=== PATIENT | female | born 1990 | race Caucasian/White ===

== ENCOUNTER 2016-06-29 10:42 | Emergency (ER) | payer MEDICAID ==
[~2016-06-29] VITALS: Ht 162.6 cm; Wt 89.4 kg
[~2016-06-29 10:42] MED LIST: ACET-789 PO; AMOX500C2 PO; AZIT250T5 PO; BUTA1CAP39 PO; CEFD300C3 PO; DEPO PROVERA; FLT05NA16 NSEACH; HYDR-1231 PO; HYDR-3812 PO; HYDR1TAB PO; IBP600T1 PO; IBP800T PO; IBUP-1773 PO; IBUP-30 PO; METR500T PO; NAPR-243 PO; NITR100C PO; PRD20T PO; PREN-115 PO; PREN1TAB71 PO; PRM5C60 TOP; PROP40TA5 PO; SULF1TAB38 PO; [UNRECOGNIZED DRUG - OTHER]
--- NOTE | 2016-06-29 11:32 | ED Cough/URI ---
General Chief Complaint: Cough/Cold/Flu Symptoms Stated Complaint: COUGH SORE THROAT EARACHE Nursing Triage Note: COUGH CONGESTION WITH EAR ACHE. X 3 DAYS History of Present Illness Time seen by provider: 11:15 Initial Comments Patient reports postnasal drainage, sore throat and dry cough for 2-3 days. She denies any fevers or current medications for the symptoms. She did take ibuprofen 600 mg at at bedtime last night Timing/Duration: intermittent Severity/Quality: mild, dry cough Prior Episodes/Possible Cause: occasional episodes Modifying Factors: Improves With Coughing, Improves With Rest Associated Symptoms: nasal congestion, nasal drainage, sore throat Allergies and Home Medications Allergies Coded Allergies: NKANo Known Allergies (Unverified Allergy, Mild, 11/05/08) Home Medications Azithromycin 250 Mg Tablet, 250 MG PO UD, #6 TAKE 2 TABLETS ON DAY ONE THEN TAKE 1 TABLET DAILY FOR FOUR MORE DAYS Prescribed by: CIRO SABILLON on 11/22/15 1037 Butalb/Acetaminophen/Caffeine 1 Each Capsule, 1 EACH PO DAILY PRN for HEADACHE, (Reported) Propranolol HCl 40 Mg Tablet, 40 MG PO DAILY, (Reported) Constitutional: no symptoms reported, see HPI EENTM: nose congestion, see HPI, throat pain Respiratory: see HPI, cough Cardiovascular: no symptoms reported, see HPI Gastrointestinal: no symptoms reported, see HPI Genitourinary: see HPI, No dysuria, frequency, No hematuria, other (she is breast-feeding, has resumed menses. She is on Depo-Provera present time.) Musculoskeletal: no symptoms reported, see HPI Skin: no symptoms reported, see HPI Psychiatric/Neurological: No Symptoms Reported, See HPI Hematologic/Lymphatic: No Symptoms Reported, See HPI Immunological/Allergic: no symptoms reported, see HPI All Other Systems Reviewed Negative Unless Noted: Yes Past Xndsyhe-Hdpsla-Kvymny Hx Patient Social History Alcohol Use: Denies Use Recreational Drug Use: No Former Smoker/When Quit: Jun 09, 2015 Recent Foreign Travel: No Contact w/Someone Who Travel: No Recent Infectious Disease Expo: No Recent Hopitalizations: No Immunizations Up To Date Tetanus Booster (TDap): Less than 5yrs Date of Influenza Vaccine: Dec 19, 2011 Surgeries HX Surgeries: Yes (d&C) Respiratory Hx Respiratory Disorders: No Cardiovascular Hx Cardiac Disorders: Yes Cardiac Disorders: Hypertension Neurological Hx Neurological Disorders: Yes Neurological Disorders: Headaches /Migraines Reproductive System Hx Reproductive Disorders: Yes (ovarian cyst) Female Reproductive Disorders: Ovarian Cyst Genitourinary Hx Genitourinary Disorders: No Gastrointestinal Hx Gastrointestinal Disorders: No Musculoskeletal Hx Musculoskeletal Disorders: No Endocrine Hx Endocrine Disorders: No HEENT HX ENT Disorders: No Cancer Hx Cancer: No Psychosocial Hx Psychiatric Problems: No Integumentary HX Skin/Integumentary Disorder: No Blood Transfusions Hx Blood Disorders: No Family Medical History Significant Family History: No Pertinent Family Hx Family Medial History: Diabetes mellitus GRANDMOTHER, MATERNAL FH: hepatitis 19 MOTHER Hypertension 19 MOTHER Physical Exam Vital Signs Vital Sign - Last 12Hours 06/29/16 10:50 Temp 98.6 Pulse 103 Resp 18 B/P (MAP) 147/97 O2 Delivery Room Air Capillary Refill : Less Than 3 Seconds General Appearance: WD/WN, no apparent distress Eyes: Bilateral Eye EOMI, Bilateral Eye Normal Inspection, Bilateral Eye PERRL HEENT: PERRL/EOMI, normal ENT inspection, TMs normal, pharynx normal, No pharyngeal erythema, No tonsillar exudate Neck: non-tender, full range of motion, supple, normal inspection, No lymphadenopathy (R), No lymphadenopathy (L), other (clear postnasal drainage.) Respiratory: chest non-tender, lungs clear, normal breath sounds, no respiratory distress Cardiovascular: normal peripheral pulses, regular rate, rhythm, no edema, no JVD, no murmur Gastrointestinal: normal bowel sounds, non tender, soft, no organomegaly, no pulsatile mass Extremities: normal range of motion, non-tender, normal inspection, no pedal edema, no calf tenderness, normal capillary refill Neurologic/Psychiatric: no motor/sensory deficits, alert, normal mood/affect, oriented x 3 Skin: normal color, warm/dry Lymphatic: no adenopathy Progress/Results/Core Measures Results/Orders Lab Results Laboratory Tests Test 06/29/16 11:26 Range/Units Urine Color YELLOW Urine Clarity CLEAR Urine pH 6 5-9 Urine Specific [place] 1.020 1.016-1.022 Urine Protein NEGATIVE NEGATIVE Urine Glucose (UA) NEGATIVE NEGATIVE Urine Ketones NEGATIVE NEGATIVE Urine Nitrite NEGATIVE NEGATIVE Urine Bilirubin NEGATIVE NEGATIVE Urine Urobilinogen NORMAL NORMAL MG/DL Urine Leukocyte Esterase 1+ H NEGATIVE Urine RBC (Auto) NEGATIVE NEGATIVE Urine RBC NONE /HPF Urine WBC 2-5 /HPF Urine Squamous Epithelial Cells 10-25 H /HPF Urine Crystals NONE /LPF Urine Bacteria FEW H /HPF Urine Casts NONE /LPF Urine Mucus MODERATE H /LPF Urine Culture Indicated NO My Orders Orders - LYNN NIXON Ua Culture If Indicated (06/29/16 11:26) Urine Bedside (06/29/16 11:26) Vital Signs/I&O Vital Sign - Last 12Hours 06/29/16 10:50 Temp 98.6 Pulse 103 Resp 18 B/P (MAP) 147/97 O2 Delivery Room Air Blood Pressure Mean: 114 Departure Impression Impression: Primary Impression: Allergic rhinitis Qualified Codes: J30.2 - Other seasonal allergic rhinitis Disposition: HOME, SELF-CARE Condition: Stable Departure-Patient Inst. Referrals: [facility] (PCP/Family) Primary Care Physician Patient Instructions: Seasonal Allergies (DC) Add. Discharge Instructions: All discharge instructions reviewed with patient and/or family. Voiced understanding. Increase fluid intake. Ibuprofen 600 mg every 8 hours for fever or pain. Use Over the counter allergy medicine and nasal spray as directed. Consider sinus irrigation. Return to emergency department for fever, difficulty breathing, sinus pain, or any new complaints. LYNN NIXON Jun 29, 2016 11:32
[2016-06-29 11:33] LABS: BILIRUBIN,URINE NEGATIVE (NEGATIVE); KETONES,URINE NEGATIVE (NEGATIVE); LEUKOCYTE ESTERASE ,URINE 1+ (NEGATIVE); NITRITE,URINE NEGATIVE (NEGATIVE); PH,URINE 6 (5-9); PROTEIN,URINE NEGATIVE (NEGATIVE); UROBILINOGEN,URINE NORMAL (NORMAL)
[2016-06-29 12:22] VITALS: BP 147/97
== END 2016-06-29 12:23 | disposition home or self-care (01) ==
LOC: EDUNIT# 10:42 → ER 10:46
DX: J30.2 Other seasonal allergic rhinitis (principal); J02.9 Acute pharyngitis, unspecified; R05 Cough; I10 Essential (primary) hypertension
CPT/HCPCS: 81000; 84703; 99282

== ENCOUNTER 2017-02-01 02:10 | Emergency (ER) | payer MEDICAID ==
[~2017-02-01] VITALS: Ht 162.6 cm; Wt 83.9 kg
--- NOTE | 2017-02-01 02:35 | ED Headache ---
General Chief Complaint: Head/Cervical Problems Stated Complaint: MIGRAINE Source: patient, other Exam Limitations: no limitations History of Present Illness Time seen by provider: 02:20 Initial Comments Patient presents to ER by private conveyance with chief complaint that since about 3:00 this afternoon she started experiencing a gripping constant for aggressively worsening global headache but feels like she is giving labor in her head and is constant, non-throbbing. She has used 1300 mg of aspirin with only marginal relief. She has not use Tylenol. She has some ear pain/on the right side as well as nasal congestion. No fevers, chills, vomiting, diarrhea, rash. She is mild nausea. She has not had a history of migraines however she does have a history of high blood pressure for which she used to be on propranolol but was taken off it 2 years ago with last . She is not on any other medications. She has not been able to sleep tonight secondary to her pain. She had some spots she saw but no numbness, paresthesias, weakness, falls , dizziness or lightheadedness. Allergies and Home Medications Allergies Coded Allergies: MEAGANANo Known Allergies (Unverified Allergy, Mild, 11/05/08) Home Medications Amoxicillin 500 Mg Capsule, 500 MG PO TID for 10 Days, #30 Ref 0 Prescribed by: KELLEY MISTRY on 02/01/17 0301 Azithromycin 250 Mg Tablet, 250 MG PO UD, #6 TAKE 2 TABLETS ON DAY ONE THEN TAKE 1 TABLET DAILY FOR FOUR MORE DAYS Prescribed by: CIRO SABILLON on 11/22/15 1037 Butalb/Acetaminophen/Caffeine 1 Each Capsule, 1 EACH PO DAILY PRN for HEADACHE, (Reported) Promethazine HCl 25 Mg Tablet, 25 MG PO Q6H PRN for NAUSEA/VOMITING, #14 Ref 0 Prescribed by: KELLEY MISTRY on 02/01/17 0302 Propranolol HCl 40 Mg Tablet, 40 MG PO DAILY, (Reported) Constitutional: No chills, No diaphoresis, No fever Eyes: Denies No Symptoms Reported, Denies Blindness, Denies Blurred Vision, Denies Drainage Ears, Nose, Mouth, Throat: ear pain, denies ear discharge Respiratory: No cough, No short of breath Cardiovascular: No chest pain, No palpitations Gastrointestinal: No abdominal pain, No constipation, No diarrhea, nausea, No vomiting Genitourinary: No discharge, No dysuria : No Musculoskeletal: No back pain, No joint pain Skin: No pruritus, No rash Psychiatric/Neurological: Headache, Denies Numbness, Denies Paresthesia Past Hjlvoyg-Qauthp-Wsjhql Hx Patient Social History Alcohol Use: Occasionally Uses Recreational Drug Use: No Smoking Status: Current Everyday Smoker Type Used: Cigarettes Recent Foreign Travel: No Contact w/Someone Who Travel: No Recent Hopitalizations: No Immunizations Up To Date Tetanus Booster (TDap): Less than 5yrs Date of Influenza Vaccine: Dec 19, 2011 Cardiovascular Cardiac Disorders: Hypertension Neurological Neurological Disorders: Headaches /Migraines Reproductive System Hx Reproductive Disorders: Yes (ovarian cyst) Female Reproductive Disorders: Ovarian Cyst Family Medical History Significant Family History: No Pertinent Family Hx Family Medial History: Diabetes mellitus GRANDMOTHER, MATERNAL FH: hepatitis 19 MOTHER Hypertension 19 MOTHER Physical Exam Vital Signs Vital Sign - Last 12Hours 02/01/17 02:24 Temp 97.5 Pulse 91 Resp 18 B/P (MAP) 141/125 Pulse Ox 99 O2 Delivery Room Air Capillary Refill : General Appearance: WD/WN, mild distress (tearful) HEENT: PERRL/EOMI, pharynx normal, TM abnormal (R) (retracted with effusion), TM abnormal (L) (retracted with effusion), No tonsillar exudate, other (frontal and maxillary sinuses are tender bilateral with mucopurulent discharge.) Neck: non-tender, supple (no anterior lymphadenopathy.), normal inspection Cardiovascular: normal peripheral pulses, regular rate, rhythm, no edema Respiratory: chest non-tender, lungs clear, normal breath sounds Extremities: non-tender, normal inspection, no pedal edema, normal capillary refill Psychiatric: alert, oriented x 3 Crainal Nerves: normal hearing, normal speech, PERRL, other (cranial nerves II through XII are intact.) Coordination/Gait: normal gait Motor/Sensory: no motor deficit, no sensory deficit Skin: normal color, warm/dry Lymphatic: no adenopathy Progress/Results/Core Measures Results/Orders My Orders Orders - KELLEY MISTRY Ketorolac Injection (Toradol Injection) (02/01/17 02:45) Promethazine Tablet (Phenergan Tablet) (02/01/17 02:45) Medications Given in ED Current Medications Medications Dose Ordered Sig/Jessica Route Start Time Stop Time Status Last Admin Dose Admin Ketorolac Tromethamine 15 mg ONCE ONCE IM 02/01/17 02:45 02/01/17 02:47 DC 02/01/17 02:52 15 MG Promethazine HCl 25 mg ONCE ONCE PO 02/01/17 02:45 02/01/17 02:47 DC 02/01/17 02:52 25 MG Vital Signs/I&O Vital Sign - Last 12Hours 02/01/17 02:24 Temp 97.5 Pulse 91 Resp 18 B/P (MAP) 141/125 Pulse Ox 99 O2 Delivery Room Air Departure Impression Impression: Primary Impression: Acute serous otitis media of both ears Qualified Codes: H65.03 - Acute serous otitis media, bilateral Additional Impressions: Maxillary sinusitis, acute Qualified Codes: J01.00 - Acute maxillary sinusitis, unspecified Headache Qualified Codes: R51 - Headache Disposition: 01 HOME, SELF-CARE Condition: Stable Departure-Patient Inst. Decision time for Depature: 03:26 Referrals: [facility] (PCP) Primary Care Physician ROXI CLEMONS (Family) Primary Care Physician Patient Instructions: Sinus Headache (DC) Add. Discharge Instructions: Drink plenty of fluids. Use Tylenol 1000 mg every 8 hours and ibuprofen 800 mg every 8 hours for your pain. Try and get some sleep. If you continue to have nausea you may take one tablet of Phenergan every 6 hours. Obtain Flonase, fluticasone and put 1 spray in each nostril daily for the next 2-4 weeks. You may use it routinely if you have chronic ear and sinus troubles. Obtain the amoxicillin and take one tablet by mouth 3 times a day to completion or at least 2-3 days after you no longer have symptoms. All discharge instructions reviewed with patient and/or family. Voiced understanding. Scripts Promethazine HCl (Promethazine Tablet) 25 Mg Tablet 25 MG PO Q6H Y for NAUSEA/VOMITING, #14 TAB 0 Refills Prov: KELLEY MSITRY 02/01/17 Amoxicillin (Amoxicillin) 500 Mg Capsule 500 MG PO TID for 10 Days, #30 CAP 0 Refills Prov: KELLEY MISTRY 02/01/17 Copy Copies To 1: TOMMY HAN TITUS J Feb 01, 2017 02:35
[2017-02-01] MEDS: KETOROLAC 30 MG/ML VIAL IM ONE (02:52)
[2017-02-01] MEDS: PROMETHAZINE 25 MG (PHENERGAN) TAB PO ONE (02:52)
[2017-02-01] MEDS ORDERED: AMOX500C2 PO (03:01)
[2017-02-01] MEDS ORDERED: PROM25TA14 PO (03:02)
[2017-02-01 03:45] VITALS: BP 143/100
== END 2017-02-01 03:47 | disposition home or self-care (01) ==
LOC: EDUNIT# 02:10 → ER 02:15
DX: H65.03 Acute serous otitis media, bilateral (principal); J01.00 Acute maxillary sinusitis, unspecified; R51 Headache; I10 Essential (primary) hypertension; F17.210 Nicotine dependence, cigarettes, uncomplicated; Z87.448 Personal history of other diseases of urinary system
CPT/HCPCS: 99284

== ENCOUNTER 2017-03-15 07:45 | Emergency (ER) | payer MEDICAID ==
[~2017-03-15] VITALS: Ht 162.6 cm; Wt 83.9 kg
[~2017-03-15 07:45] MED LIST changes: +ACHD5005 PO; +AZIT250T12 PO; -AZIT250T5 PO; -HYDR-3812 PO; +PROM25TA14 PO
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
--- NOTE | 2017-03-15 10:10 | Diagnostic Imaging Report ---
EXAM: Two views of the thoracic spine. INDICATION: Back pain. FINDINGS: The alignment of the thoracic spine is satisfactory. The vertebral body heights are preserved. Disc heights are also preserved. No significant degenerative changes are seen. The paraspinal soft tissues appear unremarkable. IMPRESSION: Unremarkable examination. Dictated by: Dictated on workstation # [id number]
--- NOTE | 2017-03-15 10:12 | Diagnostic Imaging Report ---
PA view of the chest Indication: Cough Findings: The lungs are clear. The heart size is normal. There is no effusion or pneumothorax The mediastinum and isael appear unremarkable. Impression: Unremarkable study. Dictated by: Dictated on workstation # [id number]
[2017-03-15] MEDS ORDERED: fLEXERIL (10:28)
[2017-03-15] MEDS ORDERED: TRAM50TA2 PO (10:28)
[2017-03-15] MEDS: fentaNYL INJECTION 100 MCG/2 ML AMP IVP PRN (10:41)
[2017-03-15 10:45] VITALS: BP 125/86
== END 2017-03-15 10:45 | disposition home or self-care (01) ==
LOC: EDUNIT# 07:45 → ER 07:46
DX: M54.6 Pain in thoracic spine (principal); J06.9 Acute upper respiratory infection, unspecified; I10 Essential (primary) hypertension; G43.909 Migraine, unspecified, not intractable, without status migrainosus; F17.210 Nicotine dependence, cigarettes, uncomplicated; Z87.448 Personal history of other diseases of urinary system; V48.6XXA Car passenger injured in noncollision transport accident in traffic accident, initial encounter
CPT/HCPCS: 71010; 72070; 99281

== ENCOUNTER 2018-04-26 06:19 | Emergency (ER) | payer MEDICAID ==
[~2018-04-26] VITALS: Ht 162.6 cm; Wt 78.0 kg
[~2018-04-26 06:19] MED LIST changes: +TRAM50TA2 PO; +fLEXERIL
--- OUTSIDE RECORDS SUMMARY | 2018-04-26 06:26 | XMS REPORT | Continuity of Care Document ---
Author Author [facility] Organization [facility] Address Unknown Phone Unavailable Allergies Active Description Code Type Severity Reaction Onset Reported/Identified Relationship to Patient Clinical Status Yes NKANo Known Allergies NKA Miscellaneous Allergy Mild N/A 11/05/2008 Medications There is no data. Problems Date Dx Coded Attending Type Code Diagnosis Diagnosed By 06/07/2010 Ot 462 10/12/2010 Ot 623.8 10/12/2010 Ot 626.8 02/01/2011 Ot 620.2 02/01/2011 Ot 625.9 03/26/2011 Ot 923.11 03/26/2011 Ot 959.3 03/26/2011 Ot E000.8 03/26/2011 Ot E849.0 03/26/2011 Ot E888.1 06/07/2011 Ot 924.20 06/07/2011 Ot 959.7 06/07/2011 Ot E000.8 06/07/2011 Ot E849.0 06/07/2011 Ot E917.9 07/20/2011 Ot 079.99 07/20/2011 Ot 465.9 07/20/2011 Ot 646.83 07/20/2011 Ot 647.63 07/20/2011 Ot 786.2 10/16/2011 Ot 599.0 10/16/2011 Ot 616.10 10/16/2011 Ot 646.63 10/16/2011 Ot 789.00 03/22/2012 Ot 648.91 03/22/2012 Ot V02.51 03/22/2012 Ot V06.1 03/22/2012 Ot V27.0 12/09/2012 FRANKY LOVE, CIRO Pfeiffer Ot 724.5 12/09/2012 FRANKY LOVE, CIRO Pfeiffer Ot 847.9 12/09/2012 FRANKY LOVE, CIRO Pfeiffer Ot E000.8 12/09/2012 FRANKY LOVE, CIRO Pfeiffer Ot E849.0 12/09/2012 FRANKY LOVE, CIRO Pfeiffer Ot E928.9 02/11/2013 MADINA LOVE, ZAY Cruz Ot 133.0 02/11/2013 MADINA LOVE, ZAY Cruz Ot 782.1 08/02/2013 FITO FERNANDEZ DO Ot 637.91 07/18/2014 GUILLERMO LOVE, LAKSHMI Heath Ot 289.3 07/18/2014 GUILLERMO LOVE, LAKSHMI A Ot 525.9 03/02/2015 CLARITA RUTHERFORD Ot F17.210 03/02/2015 CLARITA RUTHERFORD Ot O99.89 03/02/2015 CLARITA RUTHERFORD Ot R10.32 03/02/2015 CLARITA RUTHERFORD Ot Z3A.17 06/12/2015 CLARITA RUTHERFORD Ot J01.00 ACUTE MAXILLARY SINUSITIS, UNSPECIFIED 06/12/2015 CLARITA RUTHERFORD Ot O99.511 DISEASES OF THE RESP SYS COMP , 06/12/2015 CLARITA RUTHERFORD Ot Z3A.31 31 WEEKS GESTATION OF 06/14/2015 CLARITA RUTHERFORD Ot J01.00 06/14/2015 CLARITA RUTHERFORD Ot O99.511 06/14/2015 CLARITA RUTHERFORD Ot Z3A.31 08/13/2015 FITO FERNANDEZ DO Ot D62 ACUTE POSTHEMORRHAGIC ANEMIA 08/13/2015 FITO FERNANDEZ DO Ot O70.0 FIRST DEGREE PERINEAL LACERATION DURING 08/13/2015 FITO FERNANDEZ DO Ot O76 ABNLT IN HEART RATE AND RHYTHM COM 08/13/2015 FITO FERNANDEZ DO Ot O90.81 ANEMIA OF THE PUERPERIUM 08/13/2015 FITO FERNANDEZ DO Ot Z23 ENCOUNTER FOR IMMUNIZATION 08/13/2015 FITO FERNANDEZ DO Ot Z37.0 SINGLE LIVE 08/13/2015 FITO FERNANDEZ DO Ot Z3A.40 40 WEEKS GESTATION OF 11/22/2015 FRANKY LOVE, CIRO Pfeiffer Ot F17.210 NICOTINE DEPENDENCE, CIGARETTES, UNCOMPL 11/22/2015 FRANKY LOVE, CIRO Pfeiffer Ot J02.0 STREPTOCOCCAL PHARYNGITIS 11/22/2015 FRANKY LOVE, CIRO Pfeiffer Ot J02.9 ACUTE PHARYNGITIS, UNSPECIFIED 11/22/2015 FRANKY LOVE, CIRO Pfeiffer Ot R50.9 FEVER, UNSPECIFIED 11/22/2015 FRANKY LOVE, CIRO Pfeiffer Ot R51 HEADACHE 06/29/2016 TIFFANI, LYNN [employer] Ot I10 ESSENTIAL (PRIMARY) HYPERTENSION 06/29/2016 TIFFANI, LYNN [employer] Ot J02.9 ACUTE PHARYNGITIS, UNSPECIFIED 06/29/2016 TIFFANI, LYNN [employer] Ot J30.2 OTHER SEASONAL ALLERGIC RHINITIS 06/29/2016 TIFFANI, LYNN [employer] Ot R05 COUGH 07/01/2016 TIFFANI, LYNN [employer] Ot I10 ESSENTIAL (PRIMARY) HYPERTENSION 07/01/2016 TIFFANI, LYNN [employer] Ot J02.9 ACUTE PHARYNGITIS, UNSPECIFIED 07/01/2016 TIFFANI, LYNN [employer] Ot J30.2 OTHER SEASONAL ALLERGIC RHINITIS 07/01/2016 TIFFANI, LYNN [employer] Ot R05 COUGH 07/05/2016 TIFFANI, LYNN [employer] Ot I10 ESSENTIAL (PRIMARY) HYPERTENSION 07/05/2016 TIFFANI, LYNN [employer] Ot J02.9 ACUTE PHARYNGITIS, UNSPECIFIED 07/05/2016 TIFFANI, LYNN [employer] Ot J30.2 OTHER SEASONAL ALLERGIC RHINITIS 07/05/2016 TIFFANI, LYNN [employer] Ot R05 COUGH 02/01/2017 KELLEY MISTRY MD Ot F17.210 NICOTINE DEPENDENCE, CIGARETTES, UNCOMPL 02/01/2017 KELLEY MISTRY MD Ot H65.03 ACUTE SEROUS OTITIS MEDIA, BILATERAL 02/01/2017 KELLEY MISTRY MD Ot I10 ESSENTIAL (PRIMARY) HYPERTENSION 02/01/2017 KELLEY MISTRY MD Ot J01.00 ACUTE MAXILLARY SINUSITIS, UNSPECIFIED 02/01/2017 KELLEY MISTRY MD Ot R51 HEADACHE 02/01/2017 KELLEY MISTRY MD Ot Z87.448 PERSONAL HISTORY OF OTHER DISEASES OF UR 02/05/2017 KELLEY MISTRY MD Ot F17.210 NICOTINE DEPENDENCE, CIGARETTES, UNCOMPL 02/05/2017 KELLEY MISTRY MD Ot H65.03 ACUTE SEROUS OTITIS MEDIA, BILATERAL 02/05/2017 KELLEY MISTRY MD Ot I10 ESSENTIAL (PRIMARY) HYPERTENSION 02/05/2017 KELLEY MISTRY MD Ot J01.00 ACUTE MAXILLARY SINUSITIS, UNSPECIFIED 02/05/2017 KELLEY MISTRY MD Ot R51 HEADACHE 02/05/2017 KELLEY MISTRY MD Ot Z87.448 PERSONAL HISTORY OF OTHER DISEASES OF UR 03/15/2017 NEERU RODRÍGUEZ MD Ot F17.210 NICOTINE DEPENDENCE, CIGARETTES, UNCOMPL 03/15/2017 NEERU RODRÍGUEZ MD Ot G43.909 MIGRAINE, UNSP, NOT INTRACTABLE, WITHOUT 03/15/2017 NEERU RODRÍGUEZ MD Ot I10 ESSENTIAL (PRIMARY) HYPERTENSION 03/15/2017 NEERU RODRÍGUEZ MD Ot J06.9 ACUTE UPPER RESPIRATORY INFECTION, UNSPE 03/15/2017 NEERU RODRÍGUEZ MD Ot M54.6 PAIN IN THORACIC SPINE 03/15/2017 NEERU RODRÍGUEZ MD Ot M54.9 DORSALGIA, UNSPECIFIED 03/15/2017 NEERU RODRÍGUEZ MD Ot V48.6XXA [facility] 03/15/2017 NEERU RODRÍGUEZ MD Ot Z87.448 PERSONAL HISTORY OF OTHER DISEASES OF UR 03/22/2017 NEERU RODRÍGUEZ MD Ot F17.210 NICOTINE DEPENDENCE, CIGARETTES, UNCOMPL 03/22/2017 NEERU RODRÍGUEZ MD Ot G43.909 MIGRAINE, UNSP, NOT INTRACTABLE, WITHOUT 03/22/2017 NEERU RODRÍGUEZ MD Ot I10 ESSENTIAL (PRIMARY) HYPERTENSION 03/22/2017 NEERU RODRÍGUEZ MD Ot J06.9 ACUTE UPPER RESPIRATORY INFECTION, UNSPE 03/22/2017 NEERU RODRÍGUEZ MD Ot M54.6 PAIN IN THORACIC SPINE 03/22/2017 NEERU RODRÍGUEZ MD Ot M54.9 DORSALGIA, UNSPECIFIED 03/22/2017 NEERU RODRÍGUEZ MD Ot V48.6XXA [facility] 03/22/2017 NEERU RODRÍGUEZ MD Ot Z87.448 PERSONAL HISTORY OF OTHER DISEASES OF UR Procedures Code Description Performed By Performed On [id number] INTRODUCE OF OTH THERAP SUBST INTO FEM R 08/09/2015 [id number] REPAIR VULVA, EXTERNAL APPROACH 08/11/2015 [id number] DELIVERY OF PRODUCTS OF CONCEPTION, EXTE 08/11/2015 Results Test Result Range Complete blood count (CBC) with automated white blood cell (WBC) differential - 11/22/15 08:05 Blood leukocytes automated count (number/volume) 17.8 10*3/uL 4.3-11.0 Blood erythrocytes automated count (number/volume) 4.33 10*6/uL 4.35-5.85 Venous blood hemoglobin measurement (mass/volume) 13.8 g/dL 11.5-16.0 Blood hematocrit (volume fraction) 40 % 35-52 Automated erythrocyte mean corpuscular volume 91 [foz_us] 80-99 Automated erythrocyte mean corpuscular hemoglobin (mass per erythrocyte) 32 pg 25-34 Automated erythrocyte mean corpuscular hemoglobin concentration measurement ( mass/volume) 35 g/dL 32-36 Automated erythrocyte distribution width ratio 13.0 % 10.0-14.5 Automated blood platelet count (count/volume) 235 10*3/uL 130-400 Automated blood platelet mean volume measurement 11.2 [foz_us] 7.4-10.4 Automated blood neutrophils/100 leukocytes 83 % 42-75 Automated blood lymphocytes/100 leukocytes 6 % 12-44 Blood monocytes/100 leukocytes 10 % 0-12 Automated blood eosinophils/100 leukocytes 0 % 0-10 Automated blood basophils/100 leukocytes 0 % 0-10 Blood neutrophils automated count (number/volume) 14.8 10*3 1.8-7.8 Blood lymphocytes automated count (number/volume) 1.1 10*3 1.0-4.0 Blood monocytes automated count (number/volume) 1.8 10*3 0.0-1.0 Automated eosinophil count 0.0 10*3/uL 0.0-0.3 Automated blood basophil count (count/volume) 0.0 10*3/uL 0.0-0.1 Serum heterophile antibody titer - 11/22/15 08:05 Serum heterophile antibody titer NEGATIVE NEGATIVE Streptococcus pyogenes antigen detection - 11/22/15 08:05 Streptococcus pyogenes antigen detection POSITIVE NEGATIVE Blood manual differential performed detection - 11/22/15 08:05 Blood monocytes/100 leukocytes 8 % NRG Manual blood segmented neutrophils/100 leukocytes 79 % NRG Blood band neutrophils/100 leukocytes 10 % NRG Manual blood lymphocytes/100 leukocytes 3 % NRG Manual eosinophils/100 leukocytes in nose 0 % [facility] Manual blood basophils/100 leukocytes 0 % [facility] Blood erythrocyte morphology finding identification NORMAL [facility] Comprehensive metabolic panel - 11/22/15 08:05 Serum or plasma sodium measurement (moles/volume) 137 mmol/L 135-145 Serum or plasma potassium measurement (moles/volume) 2.9 mmol/L 3.6-5.0 Serum or plasma chloride measurement (moles/volume) 106 mmol/L 98-107 Carbon dioxide 17 mmol/L 21-32 Serum or plasma anion gap determination (moles/volume) 14 mmol/L 5-14 Serum or plasma urea nitrogen measurement (mass/volume) 5 mg/dL 7-18 Serum or plasma creatinine measurement (mass/volume) 0.78 mg/dL 0.60-1.30 Serum or plasma urea nitrogen/creatinine mass ratio 6 NRG Serum or plasma creatinine measurement with calculation of estimated glomerular filtration rate > [facility] Serum or plasma glucose measurement (mass/volume) 98 mg/dL 70-105 Serum or plasma calcium measurement (mass/volume) 8.8 mg/dL 8.5-10.1 Serum or plasma total bilirubin measurement (mass/volume) 0.6 mg/dL 0.1-1.0 Serum or plasma alkaline phosphatase measurement (enzymatic activity/volume) 67 U/L 40-136 Serum or plasma aspartate aminotransferase measurement (enzymatic activity/ volume) 14 U/L 5-34 Serum or plasma alanine aminotransferase measurement (enzymatic activity/volume ) 16 U/L 0-55 Serum or plasma protein measurement (mass/volume) 7.4 g/dL 6.4-8.2 Serum or plasma albumin measurement (mass/volume) 4.2 g/dL 3.2-4.5 Influenza virus A and B antigen detection - 11/22/15 08:20 FLU RESULT NEGATIVE FOR INFLUENZA A AND B ANTIGENS BY IA [facility] Complete urinalysis with reflex to culture - 06/29/16 11:26 Urine color determination YELLOW [facility] Urine clarity determination CLEAR [facility] Urine pH measurement by test strip 6 5-9 Specific gravity of urine by test strip 1.020 1.016- 1.022 Urine protein assay by test strip, semi-quantitative NEGATIVE NEGATIVE Urine glucose detection by automated test strip NEGATIVE NEGATIVE Erythrocytes detection in urine sediment by light microscopy NEGATIVE NEGATIVE Urine ketones detection by automated test strip NEGATIVE NEGATIVE Urine nitrite detection by test strip NEGATIVE NEGATIVE Urine total bilirubin detection by test strip NEGATIVE NEGATIVE Urine urobilinogen measurement by automated test strip (mass/volume) NORMAL NORMAL Urine leukocyte esterase detection by dipstick 1+ NEGATIVE Automated urine sediment erythrocyte count by microscopy (number/high power field) NONE NRG Automated urine sediment leukocyte count by microscopy (number/high power field ) [HPF] NRG Bacteria detection in urine sediment by light microscopy FEW NRG Squamous epithelial cells detection in urine sediment by light microscopy 10-25 NRG Crystals detection in urine sediment by light microscopy NONE NRG Casts detection in urine sediment by light microscopy NONE NRG Mucus detection in urine sediment by light microscopy MODERATE NRG Complete urinalysis with reflex to culture NO NRG Encounters ACCT No. Visit Date/Time Discharge Status Pt. Type Provider Facility Loc./Unit Complaint [id number] 03/15/2017 07:46:00 03/15/2017 10:45:00 DIS Emergency ANNE LOVE, NEERU Benz [facility] ER BACK PAIN,COUGH,SOA [id number] 02/01/2017 02:15:00 02/01/2017 03:47:00 DIS Emergency FIDELIA LOVE, KELLEY Nixon [facility] ER MIGRAINE [id number] 06/29/2016 10:46:00 06/29/2016 12:23:00 DIS Emergency LYNN NIXON [facility] ER COUGH SORE THROAT EARACHE [id number] 11/22/2015 07:49:00 11/22/2015 11:09:00 DIS Emergency FRANKY LOVE, CIRO Pfeiffer [facility] ER SORE THROAT/EARACHE FEVER [id number] 08/09/2015 19:55:00 08/13/2015 15:15:00 DIS Inpatient FITO FERNANDEZ DO [facility] LDRP INDUCTION [id number] 06/12/2015 11:24:00 06/12/2015 12:08:00 DIS Emergency CLARITA RUTHERFORD [facility] ER 31 WKS PREG/R SIDE SINUS PRESSURE/HEARING LOSS [id number] 03/02/2015 13:30:00 03/02/2015 16:50:00 DIS Emergency CLARITA RUTHERFORD [facility] ER [id number] 07/18/2014 09:38:00 07/18/2014 10:29:00 DIS Emergency GUILLERMO LOVE, LAKSHMI A [facility] ER [id number] 08/02/2013 01:10:00 08/02/2013 11:00:00 DIS Inpatient FITO FERNANDEZ DO [facility] WS [id number] 02/11/2013 09:13:00 02/11/2013 10:49:00 DIS Emergency MADINA LOVE, ZAY Cruz [facility] ER [id number] 12/09/2012 21:25:00 12/09/2012 22:49:00 DIS Emergency FRANKY LOVE, CIRO Pfeiffer [facility] ER [id number] 04/26/2018 06:22:00 ACT Emergency RAJIV LOVE, ILAN S [facility] ER FALL,LEFT HIP KNEE [id number] 07/18/2014 09:37:00 Document Registration [id number] 07/18/2014 09:37:00 Document Registration [id number] 07/18/2014 09:37:00 Document Registration [id number] 03/20/2012 09:22:00 Document Registration [id number] 10/16/2011 11:48:00 Document Registration [id number] 03/26/2011 11:37:00 Document Registration [id number] 02/01/2011 17:46:00 Document Registration [id number] 10/12/2010 11:23:00 Document Registration [id number] 06/07/2010 11:20:00 Document Registration
[2018-04-26] MEDS ORDERED: NS IV 1000 ML 1,000 ML IV SCH (06:45)
[2018-04-26] MEDS ORDERED: fentaNYL INJECTION 100 MCG/2 ML AMP IVP ONE (06:45)
--- NOTE | 2018-04-26 06:59 | ED Fall/Injury ---
General Chief Complaint: General Problems/Pain Stated Complaint: FALL,LEFT HIP & KNEE Nursing Triage Note: Pt fell around 30-45 minutes ago and injured her left thigh/knee. Pt arrived by private vehicle and was assisted by significant other. Pt was wheeled in by wheelchair. Significant other lifted pt into bed and pt scooted up in bed. Any movement causes pt to cry/scream. Pt first complained of hip pain, then couldn' t move toe, then thigh and knee pain. Source: patient, other (significant other) Exam Limitations: no limitations History of Present Illness Date Seen by Provider: Apr 26, 2018 Time Seen by Provider: 06:56 Initial Comments This 27-year-old white female presents after she inadvertently slipped and fell on the ice from prior presentation when she reported. She is complaining of pain in the left hip and inability due to pain to move the left lower extremity. She also is complaining of an inability to move her left leg and foot. Patient denies other injury and her fall. The patient's pain is sharp and severe in nature. It is made worse by active or passive motion the left hip. Allergies and Home Medications Allergies Coded Allergies: MEAGANANo Known Allergies (Unverified Allergy, Mild, 11/05/08) Home Medications Tramadol HCl 50 Mg Tablet, 50 MG PO 3 TIMES A DAY Prescribed by: NEERU RODRÍGUEZ on 03/15/17 1028 [fLEXERIL] , 10 TWICE A DAY Prescribed by: NEERU RODRÍGUEZ on 03/15/17 1028 Patient Home Medication List Home Medication List Reviewed: Yes Review of Systems Review of Systems Constitutional: No chills, No fever Eyes: No Symptoms Reported Ears, Nose, Mouth, Throat: no symptoms reported Respiratory: No cough Cardiovascular: No chest pain Gastrointestinal: No abdominal pain Genitourinary: no symptoms reported Musculoskeletal: see HPI, joint pain (left hip) Skin: no symptoms reported Psychiatric/Neurological: No Symptoms Reported Past Mdadzys-Ywigvp-Vsauff Hx Past Med/Social Hx: Reviewed Nursing Past Med/Soc Hx Patient Social History Alcohol Use: Denies Use Recreational Drug Use: No Type Used: Cigarettes 2nd Hand Smoke Exposure: Yes Recent Foreign Travel: No Contact w/Someone Who Travel: No Recent Infectious Disease Expo: No Recent Hopitalizations: No Physical Abuse: No Sexual Abuse: No Mistreated: No Fear: No Immunizations Up To Date Tetanus Booster (TDap): Less than 5yrs Date of Influenza Vaccine: Dec 19, 2011 Past Medical History Surgeries: Yes (d&C) Respiratory: No Cardiac: Yes Hypertension Neurological: Yes Headaches /Migraines Last Menstrual Period: Apr 26, 2018 Reproductive Disorders: Yes (ovarian cyst) Female Reproductive Disorders: Ovarian Cyst Genitourinary: No Gastrointestinal: No Musculoskeletal: No Endocrine: No HEENT: No Cancer: No Psychosocial: No Integumentary: No Blood Disorders: No Family Medical History Diabetes mellitus GRANDMOTHER, MATERNAL FH: hepatitis 19 MOTHER Hypertension 19 MOTHER No Pertinent Family Hx Physical Exam Vital Signs Vital Signs - First Documented 04/26/18 06:42 Temp 95.8 Pulse 123 Resp 28 B/P (MAP) 149/107 (121) Pulse Ox 100 O2 Delivery Room Air Capillary Refill : Less Than 3 Seconds Height, Weight, BMI Height: 5'4.00" Weight: 172lbs. 0oz. 78.189204zm; 39.0 BMI Method:Stated General Appearance: WD/WN, moderate distress HEENT: normal ENT inspection Neck: full range of motion, supple Cardiovascular: regular rate, rhythm Respiratory: lungs clear Gastrointestinal: normal bowel sounds, non tender, soft Back: normal inspection Extremities: other (there is tenderness palpation over the left hip.) Neurologic/Psychiatric: no motor/sensory deficits, alert, normal mood/affect Skin: normal color, warm/dry Cole Coma Score Best Eye Response: (4) Open Spontaneously Best Verbal Response: (5) Oriented Best Motor Response: (6) Obeys Commands Cole Total: 15 Progress/Results/Core Measures Results/Orders Lab Results Laboratory Tests Test 04/26/18 08:17 Range/Units Urine Test NEGATIVE NEGATIVE Urine Opiates Screen NEGATIVE NEGATIVE Urine Oxycodone Screen NEGATIVE NEGATIVE Urine Methadone Screen NEGATIVE NEGATIVE Urine Propoxyphene Screen NEGATIVE NEGATIVE Urine Barbiturates Screen NEGATIVE NEGATIVE Ur Tricyclic Antidepressants Screen NEGATIVE NEGATIVE Urine Phencyclidine Screen NEGATIVE NEGATIVE Urine Amphetamines Screen POSITIVE H NEGATIVE Urine Methamphetamines Screen POSITIVE H NEGATIVE Urine Benzodiazepines Screen NEGATIVE NEGATIVE Urine Cocaine Screen NEGATIVE NEGATIVE Urine Cannabinoids Screen NEGATIVE NEGATIVE My Orders Orders - ILAN VANCE MD Pelvis With Left Hip 2-3 Views (04/26/18 06:39) Fentanyl Injection (Sublimaze Injection (04/26/18 06:45) Ns Iv 1000 Ml (Sodium Chloride 0.9%) (04/26/18 06:45) Hcg,Qualitative Urine (04/26/18 07:01) Drug Screen Stat (Urine) (04/26/18 07:01) Vital Signs/I&O 04/26/18 06:42 Temp 95.8 Pulse 123 Resp 28 B/P (MAP) 149/107 (121) Pulse Ox 100 O2 Delivery Room Air Blood Pressure Mean: 121 Progress Progress Note : Time: 11:32 Progress Note The patient's drug screen was positive. The patient was difficult to arouse and slept in the emergency department for approximately 2 hours. X-ray of the patient's pelvis and left hip was unremarkable. After the patient was more easily arousable she was walked in the emergency department with some discomfort to the left hip area. No other findings of injury were noted on the patient. Departure Impression Primary Impression: Contusion of left hip Qualified Codes: S70.02XA - Contusion of left hip, initial encounter Disposition: 01 HOME, SELF-CARE Condition: Improved Departure-Patient Inst. Decision time for Depature: 11:34 Referrals: [facility] [place] (PCP) Primary Care Physician ROXI CLEMONS (Family) Primary Care Physician Patient Instructions: Contusion (DC) Add. Discharge Instructions: Ibuprofen for pain. Follow-up with your doctor on Sunday. Return if any problems or questions. Crutches for limited weightbearing over the weekend. All discharge instructions reviewed with patient and/or family. Voiced understanding. ILAN VANCE MD Apr 26, 2018 06:59
--- NOTE | 2018-04-26 07:30 | NUR ---
Each time this nurse has gone into room to speak with pt, nurse has had to perform sternal rub to arouse pt. Pt has not been given fentanyl for this reason. Pt has been asked multiple times for urine; pt declines.
[2018-04-26 08:35] LABS: HCG,QUALITATIVE URINE NEGATIVE (NEGATIVE)
[2018-04-26 08:54] LABS: AMPHETAMINE SCREEN, URINE POSITIVE (NEGATIVE); BARBITURATE SCREEN URINE NEGATIVE (NEGATIVE); BENZODIAZEPINES SCREEN URINE NEGATIVE (NEGATIVE); CANNABINOID SCREEN, URINE NEGATIVE (NEGATIVE); COCAINE SCREEN URINE NEGATIVE (NEGATIVE); METHADONE STAT NEGATIVE (NEGATIVE); METHAMPHETAMINE SCREEN URINE S POSITIVE (NEGATIVE); OPIATE SCREEN URINE NEGATIVE (NEGATIVE); OXYCODONE STAT NEGATIVE (NEGATIVE); PROPOXYPHENE STAT NEGATIVE (NEGATIVE); TRICYCLIC ANTIDEPRESSANTS SCRE NEGATIVE (NEGATIVE)
--- NOTE | 2018-04-26 09:25 | Diagnostic Imaging Report ---
INDICATION: Fall. TIME OF EXAMINATION: 08:57 a.m. FINDINGS: An AP view of the pelvis and two views of the left hip were obtained. Femoroacetabular alignment is normal bilaterally. The joint spaces are well-maintained. Femoral head and neck are intact. SI joints and symphysis are intact. No fractures are seen. IMPRESSION: No acute bony abnormality is detected. Dictated by: Dictated on workstation # [id number]
--- NOTE | 2018-04-26 09:50 | NUR ---
Attempted to get pt up to walk. Pt uncooperative and cursed at nurse. Pt reports not being able to bear weight on leg or walk. Dr Traylor notified. Dr. Traylor wants to let pt rest for an hour longer and attempt to walk again.
--- NOTE | 2018-04-26 11:07 | NUR ---
Had pt up to walk with Dr. Traylor. Pt able to walk with limp. Pt's reports being able to get crutches for pt.
--- NOTE | 2018-04-26 11:45 | NUR ---
Pt discharged by different nurse. Other nurse reports asking pt if pt had IV. Pt denied having IV. Pt discharged with IV in L AC. This nurse called [place] police department to check on pt at home and remove IV.
[2018-04-26 11:59] VITALS: BP 148/87
--- NOTE | 2018-04-26 12:20 | NUR ---
[employer] called and reported [employer] was out on domestic call with the pt. Pt showed arms to [employer] and had no IV present per dispatch at [employer].
== END 2018-04-26 11:45 | disposition home or self-care (01) ==
LOC: EDUNIT# 06:19 → ER 06:22
DX: S70.02XA Contusion of left hip, initial encounter (principal); I10 Essential (primary) hypertension; G43.909 Migraine, unspecified, not intractable, without status migrainosus; R40.2142 Coma scale, eyes open, spontaneous, at arrival to emergency department; R40.2252 Coma scale, best verbal response, oriented, at arrival to emergency department; R40.2362 Coma scale, best motor response, obeys commands, at arrival to emergency department; Z87.448 Personal history of other diseases of urinary system; Z77.22 Contact with and (suspected) exposure to environmental tobacco smoke (acute) (chronic); Z98.890 Other specified postprocedural states; Z82.49 Family history of ischemic heart disease and other diseases of the circulatory system; W01.0XXA Fall on same level from slipping, tripping and stumbling without subsequent striking against object, initial encounter
CPT/HCPCS: 51702; 80306; 84703

== ENCOUNTER 2018-05-21 03:51 | Emergency (ER) | payer OTHER, MEDICAID ==
[~2018-05-21] VITALS: Ht 162.6 cm; Wt 77.1 kg
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
[2018-05-21] MEDS ORDERED: KETOROLAC 30 MG/ML VIAL IM ONE (04:00)
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
[2018-05-21 04:28] LABS: BILIRUBIN,URINE NEGATIVE (NEGATIVE); CLARITY,URINE CLEAR; COLOR,URINE YELLOW; GLUCOSE, URINE (UA) NEGATIVE (NEGATIVE); KETONES,URINE NEGATIVE (NEGATIVE); LEUKOCYTE ESTERASE ,URINE 1+ (NEGATIVE); NITRITE,URINE NEGATIVE (NEGATIVE); PH,URINE 6 (5-9); PROTEIN,URINE NEGATIVE (NEGATIVE); UROBILINOGEN,URINE NORMAL (NORMAL)
[2018-05-21 04:35] LABS: BACTERIA,URINE FEW /HPF; SQUAMOUS EPITHELIAL CELL,UR 0-2 /HPF; WBC,URINE 0-2 /HPF
[2018-05-21 04:39] LABS: AMPHETAMINE SCREEN, URINE POSITIVE (NEGATIVE); BARBITURATE SCREEN URINE NEGATIVE (NEGATIVE); BENZODIAZEPINES SCREEN URINE NEGATIVE (NEGATIVE); CANNABINOID SCREEN, URINE POSITIVE (NEGATIVE); COCAINE SCREEN URINE NEGATIVE (NEGATIVE); METHADONE STAT NEGATIVE (NEGATIVE); METHAMPHETAMINE SCREEN URINE S POSITIVE (NEGATIVE); OPIATE SCREEN URINE NEGATIVE (NEGATIVE); OXYCODONE STAT NEGATIVE (NEGATIVE); PROPOXYPHENE STAT NEGATIVE (NEGATIVE); TRICYCLIC ANTIDEPRESSANTS SCRE NEGATIVE (NEGATIVE)
[2018-05-21 05:25] VITALS: BP 142/100
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
== END 2018-05-21 05:25 | disposition home or self-care (01) ==
LOC: EDUNIT# 03:51 → ER 03:54
DX: R07.81 Pleurodynia (principal); I10 Essential (primary) hypertension; G43.909 Migraine, unspecified, not intractable, without status migrainosus; R40.2142 Coma scale, eyes open, spontaneous, at arrival to emergency department; R40.2252 Coma scale, best verbal response, oriented, at arrival to emergency department; R40.2362 Coma scale, best motor response, obeys commands, at arrival to emergency department; F17.210 Nicotine dependence, cigarettes, uncomplicated; Z87.448 Personal history of other diseases of urinary system; Z98.890 Other specified postprocedural states; V49.50XA Passenger injured in collision with unspecified motor vehicles in traffic accident, initial encounter
CPT/HCPCS: 71111; 80306; 81000

== ENCOUNTER 2018-08-01 14:22 | Emergency (ER) | payer MEDICAID, OTHER ==
[~2018-08-01] VITALS: Ht 162.6 cm; Wt 77.1 kg
[2018-08-01] MEDS ORDERED: PROCHLORPERAZINE 10 MG/2ML INJ (COMPAZINE) IM ONE (15:00)
[2018-08-01] MEDS ORDERED: diphenhydrAMINE 50 MG/ML INJ (BENADRYL) IM ONE (15:00)
[2018-08-01] MEDS ORDERED: KETOROLAC 60 MG/2 ML VIAL IM ONE (15:00)
--- NOTE | 2018-08-01 16:41 | ED Headache ---
General Chief Complaint: Head/Cervical Problems Stated Complaint: MIGRAINE Nursing Triage Note: HEADACHE FOR 4 DAYS, RELIEF WITH SLEEPING. PT STATES SHE IS NOW UNABLE TO SLEEP DUE TO THE PAIN. HAS ATTEMPTED TO TAKE TYLENOL, IBUPROFEN, ADVIL AND ASPIRIN WITHOUT RELIEF. PT DENIES LOC OR HEAD INJURY. Nursing Sepsis Screen: No Definite Risk Source: patient Exam Limitations: no limitations History of Present Illness Date Seen by Provider: August 01, 2018 Time Seen by Provider: 14:50 Initial Comments 27 year old female who presents to the emergency room with complaints of migraine for the past 4 days with no relief with over the counter medication use. Denies head injury. Request CT of head. Location: global Associated Symptoms: No fever/chills, No stiff neck Allergies and Home Medications Allergies Coded Allergies: NKANo Known Allergies (Unverified Allergy, Mild, 11/05/08) Home Medications Tramadol HCl 50 Mg Tablet, 50 MG PO 3 TIMES A DAY Prescribed by: NEERU RODRÍGUEZ on 03/15/17 1028 [fLEXERIL] , 10 TWICE A DAY Prescribed by: NEERU RODRÍGUEZ on 03/15/17 1028 Patient Home Medication List Home Medication List Reviewed: Yes Review of Systems Review of Systems Constitutional: see HPI; No chills, No fever Psychiatric/Neurological: See HPI, Headache All Other Systems Reviewed Negative Unless Noted: Yes Past Ylqronx-Paupyq-Aufouw Hx Past Med/Social Hx: Reviewed Nursing Past Med/Soc Hx Patient Social History Alcohol Use: Denies Use Recreational Drug Use: No Smoking Status: Current Everyday Smoker Type Used: Cigarettes 2nd Hand Smoke Exposure: Yes Recent Foreign Travel: No Contact w/Someone Who Travel: No Recent Infectious Disease Expo: No Recent Hopitalizations: No Physical Abuse: No Sexual Abuse: No Mistreated: No Fear: No Immunizations Up To Date Tetanus Booster (TDap): Less than 5yrs Date of Influenza Vaccine: Dec 19, 2011 Seasonal Allergies Seasonal Allergies: No Past Medical History Surgeries: Yes (EMERGENT D & C) Respiratory: No Cardiac: Yes Hypertension Neurological: No Headaches /Migraines Reproductive Disorders: Yes (ovarian cyst) Female Reproductive Disorders: Ovarian Cyst Genitourinary: No Gastrointestinal: No Musculoskeletal: No Endocrine: No HEENT: No Cancer: No Psychosocial: No Integumentary: No Blood Disorders: No Family Medical History Reviewed Nursing Family Hx Diabetes mellitus GRANDMOTHER, MATERNAL FH: hepatitis 19 MOTHER Hypertension 19 MOTHER No Pertinent Family Hx Physical Exam Vital Signs Vital Signs - First Documented 08/01/18 14:41 Temp 98.4 Pulse 102 Resp 18 B/P (MAP) 149/85 (106) Pulse Ox 100 O2 Delivery Room Air Capillary Refill : Less Than 3 Seconds Height, Weight, BMI Height: 5'4.00" Weight: 170lbs. 0oz. 77.404194gr; 39.0 BMI Method:Stated General Appearance: WD/WN, no apparent distress Cardiovascular: normal peripheral pulses, regular rate, rhythm, no edema, no gallop, no JVD, no murmur Respiratory: chest non-tender, lungs clear, normal breath sounds, no respiratory distress, no accessory muscle use Extremities: normal capillary refill Psychiatric: alert, oriented x 3 Crainal Nerves: normal hearing, normal speech, PERRL Coordination/Gait: normal finger to nose, normal gait Motor/Sensory: no motor deficit Skin: normal color, warm/dry Progress/Results/Core Measures Results/Orders My Orders Orders - GARETT VICTOR Ketorolac Injection (Toradol Injection) (08/01/18 15:00) Prochlorperazine Injection (Compazine In (08/01/18 15:00) Diphenhydramine Injection (Benadryl Inje (08/01/18 15:00) Ct Head Wo (08/01/18 15:56) Medications Given in ED Vital Signs/I&O 08/01/18 08/01/18 14:41 16:52 Temp 98.4 97.6 Pulse 102 56 Resp 18 18 B/P (MAP) 149/85 (106) 149/85 (106) Pulse Ox 100 99 O2 Delivery Room Air Blood Pressure Mean: 106 Progress Progress Note : Time: 16:41 Progress Note I have seen and evaluated the patient. I have informed her of her imaging studies. She has relief after medication and agrees with plan of care, plans for discharge, return precautions were given. Departure Impression Primary Impression: Migraine Disposition: 01 HOME, SELF-CARE Condition: Stable/Unchanged Departure-Patient Inst. Decision time for Depature: 16:41 Referrals: [facility] (PCP) Primary Care Physician ROXI CLEMONS (Family) Primary Care Physician Patient Instructions: Migraine Headache (DC) Add. Discharge Instructions: Follow-up with your primary care provider as needed. You may continue to use ibuprofen and Tylenol as directed by the bottle for pain relief. Return back to the emergency room for worsening symptoms or concerns as needed. All discharge instructions reviewed with patient and/or family. Voiced understanding. GARETT VICTOR August 01, 2018 16:41
--- NOTE | 2018-08-01 16:43 | Diagnostic Imaging Report ---
PROCEDURE: CT head without contrast. TECHNIQUE: Multiple contiguous axial images were obtained through the brain without the use of intravenous contrast. Auto Exposure Controls were utilized during the CT exam to meet ALARA standards for radiation dose reduction. INDICATION: Migraine headache. Comparison: None available. Findings: No hyperdense hemorrhage or space-occupying mass. No hydrocephalus or midline shift. The basilar cisterns are normal. Leggett-white matter differentiation is well preserved. The mastoid air cells are clear. Paranasal sinuses are normal. No focal osseous abnormality of the calvarium. Impression: No acute intracranial process. Dictated by: Dictated on workstation # [id number]
[2018-08-01 16:52] VITALS: BP 149/85
== END 2018-08-01 16:53 | disposition home or self-care (01) ==
LOC: EDUNIT# 14:22 → ER 14:24
DX: G43.909 Migraine, unspecified, not intractable, without status migrainosus (principal); I10 Essential (primary) hypertension; F17.210 Nicotine dependence, cigarettes, uncomplicated; Z98.890 Other specified postprocedural states; Z87.448 Personal history of other diseases of urinary system
CPT/HCPCS: 70450

== ENCOUNTER 2018-08-25 13:21 | Emergency (ER) | payer MEDICAID ==
[~2018-08-25] VITALS: Ht 162.6 cm; Wt 68.0 kg
[2018-08-25] MEDS ORDERED: RT-ALBUTEROL/IPRATROPIUM 3 ML (DUONEB) VIAL INH ONE (13:45)
[2018-08-25 13:52] LABS: BASOPHILS % (AUTO) 0 % (0-10); EOSINOPHILS # (AUTO) 0.2 10^3/uL (0.0-0.3); EOSINOPHILS % (AUTO) 3 % (0-10); HEMATOCRIT 40 % (35-52); HEMOGLOBIN 14.1 G/DL (11.5-16.0); LYMPHOCYTES # (AUTO) 1.8 X 10^3 (1.0-4.0); LYMPHOCYTES % (AUTO) 20 % (12-44); MEAN CORPUSCULAR HEMOGLOBIN 33 PG (25-34); MEAN CORPUSCULAR HGB CONC 35 G/DL (32-36); MEAN CORPUSCULAR VOLUME 93 FL (80-99); MEAN PLATELET VOLUME 10.3 FL (7.4-10.4); MONOCYTES # (AUTO) 0.8 X 10^3 (0.0-1.0); MONOCYTES % (AUTO) 9 % (0-12); NEUTROPHILS # (AUTO) 6.3 X 10^3 (1.8-7.8); NEUTROPHILS % (AUTO) 69 % (42-75); PLATELET COUNT 271 10^3/uL (130-400); RED CELL DISTRIBUTION WIDTH 13.1 % (10.0-14.5); WHITE BLOOD COUNT 9.2 10^3/uL (4.3-11.0)
[2018-08-25 14:04] LABS: ALANINE AMINOTRANSFERASE 29 U/L (0-55); ALBUMIN 4.1 GM/DL (3.2-4.5); ALKALINE PHOSPHATASE 35 U/L (40-136); BILIRUBIN,TOTAL 0.5 MG/DL (0.1-1.0); BUN/CREATININE RATIO 7; CALCIUM 9.5 MG/DL (8.5-10.1); CARBON DIOXIDE 23 MMOL/L (21-32); CHLORIDE 106 MMOL/L (98-107); CREATININE SERUM 0.67 MG/DL (0.60-1.30); GFR ESTIMATED > 60; GLUCOSE 95 MG/DL (70-105); POTASSIUM 3.1 MMOL/L (3.6-5.0); SODIUM 137 MMOL/L (135-145); TOTAL PROTEIN 7.3 GM/DL (6.4-8.2)
[2018-08-25] MEDS ORDERED: PROMETHAZINE/ CODEINE SYRUP 5 ML UDC PO ONE (14:45)
--- NOTE | 2018-08-25 15:10 | Diagnostic Imaging Report ---
INDICATION: Cough. PA and lateral views were obtained. Comparison made with prior examination from 05/21/2018. FINDINGS: The heart size, mediastinal configuration, and pulmonary vascularity are within normal limits. There is no pleural effusion, pneumothorax, or pneumonia. The osseous structures are unremarkable. IMPRESSION: No acute cardiopulmonary abnormality. Dictated by: Dictated on workstation # [id number]
[2018-08-25] MEDS ORDERED: RT-ALBUINH IH (15:47)
--- NOTE | 2018-08-25 15:48 | ED Cough/URI ---
General Chief Complaint: Respiratory Problems Stated Complaint: SOA Nursing Triage Note: PATIENT VERBALIZED COUGH, OTC COUGH SYRUP, BENADRYL. LAST NIGHT VERBALIZED DIFFICULTY BREATHING. 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 Reports history of asthma. Denies fevers. Allergies and Home Medications Allergies Coded Allergies: NKANo Known Allergies (Unverified Allergy, Mild, 11/05/08) Home Medications Albuterol Sulfate 1 Puff Puff, 2 PUFF IH Q4H 1 PUFF = 90 MCG Prescribed by: GARETT VICTOR on 08/25/18 1547 Tramadol HCl 50 Mg Tablet, 50 MG PO 3 TIMES A DAY Prescribed by: NEERU RODRÍGUEZ on 03/15/17 1028 [fLEXERIL] , 10 TWICE A DAY Prescribed by: NEERU RODRÍGUEZ on 03/15/17 1028 Patient Home Medication List Home Medication List Reviewed: Yes Review of Systems Review of Systems Constitutional: see HPI; No fever Respiratory: see HPI, cough, short of breath, wheezing All Other Systems Reviewed Negative Unless Noted: Yes Past Sfcnwic-Eadxml-Ibnaso Hx Past Med/Social Hx: Reviewed Nursing Past Med/Soc Hx Patient Social History Alcohol Use: Denies Use Recreational Drug Use: No Smoking Status: Current Everyday Smoker Type Used: Cigarettes 2nd Hand Smoke Exposure: Yes Recent Foreign Travel: No Contact w/Someone Who Travel: No Recent Infectious Disease Expo: No Recent Hopitalizations: No Immunizations Up To Date Tetanus Booster (TDap): Less than 5yrs Date of Influenza Vaccine: Dec 19, 2011 Seasonal Allergies Seasonal Allergies: No Past Medical History Surgeries: Yes (EMERGENT D & C) Respiratory: No Cardiac: Yes Hypertension Neurological: No Headaches /Migraines Reproductive Disorders: Yes (ovarian cyst) Female Reproductive Disorders: Ovarian Cyst Genitourinary: No Gastrointestinal: No Musculoskeletal: No Endocrine: No HEENT: No Cancer: No Psychosocial: No Integumentary: No Blood Disorders: No Family Medical History Reviewed Nursing Family Hx Diabetes mellitus GRANDMOTHER, MATERNAL FH: hepatitis 19 MOTHER Hypertension 19 MOTHER No Pertinent Family Hx Physical Exam Vital Signs - First Documented 08/25/18 13:25 Temp 98.0 Pulse 98 Resp 18 B/P (MAP) 146/103 (117) Pulse Ox 98 O2 Delivery Room Air Capillary Refill : Less Than 3 Seconds Height: 5'4.00" Weight: 150lbs. 0oz. [id number]; 39.0 BMI Method:Stated General Appearance: WD/WN, no apparent distress Respiratory: chest non-tender, no respiratory distress, no accessory muscle use, wheezing Cardiovascular: normal peripheral pulses, regular rate, rhythm, no edema, no gallop, no JVD, no murmur Gastrointestinal: normal bowel sounds, non tender, soft, no organomegaly, no pulsatile mass Extremities: normal capillary refill Neurologic/Psychiatric: alert, normal mood/affect, oriented x 3 Skin: normal color, warm/dry Progress/Results/Core Measures Suspected Sepsis Recent Fever Within 48 Hours: No Infection Criteria Present: None New/Unexplained Altered Menta: No Sepsis Screen: No Definite Risk SIRS Temperature:98.0 Pulse: 98 Respiratory Rate: 18 Laboratory Tests 08/25/18 13:40: White Blood Count 9.2 Blood Pressure 146 /103 Mean: 117 Laboratory Tests 08/25/18 13:40: Creatinine 0.67, Platelet Count 271, Total Bilirubin 0.5 Results/Orders Lab Results Laboratory Tests Test 08/25/18 13:40 Range/Units White Blood Count 9.2 4.3-11.0 10^3/uL Red Blood Count 4.34 L 4.35-5.85 10^6/uL Hemoglobin 14.1 11.5-16.0 G/DL Hematocrit 40 35-52 % Mean Corpuscular Volume 93 80-99 FL Mean Corpuscular Hemoglobin 33 25-34 PG Mean Corpuscular Hemoglobin Concent 35 32-36 G/DL Red Cell Distribution Width 13.1 10.0-14.5 % Platelet Count 271 130-400 10^3/uL Mean Platelet Volume 10.3 7.4-10.4 FL Neutrophils (%) (Auto) 69 42-75 % Lymphocytes (%) (Auto) 20 12-44 % Monocytes (%) (Auto) 9 0-12 % Eosinophils (%) (Auto) 3 0-10 % Basophils (%) (Auto) 0 0-10 % Neutrophils # (Auto) 6.3 1.8-7.8 X 10^3 Lymphocytes # (Auto) 1.8 1.0-4.0 X 10^3 Monocytes # (Auto) 0.8 0.0-1.0 X 10^3 Eosinophils # (Auto) 0.2 0.0-0.3 10^3/uL Basophils # (Auto) 0.0 0.0-0.1 10^3/uL Sodium Level 137 135-145 MMOL/L Potassium Level 3.1 L 3.6-5.0 MMOL/L Chloride Level 106 98-107 MMOL/L Carbon Dioxide Level 23 21-32 MMOL/L Anion Gap 8 5-14 MMOL/L Blood Urea Nitrogen 5 L 7-18 MG/DL Creatinine 0.67 0.60-1.30 MG/DL Estimat Glomerular Filtration Rate > 60 BUN/Creatinine Ratio 7 Glucose Level 95 70-105 MG/DL Calcium Level 9.5 8.5-10.1 MG/DL Corrected Calcium 9.4 8.5-10.1 MG/DL Total Bilirubin 0.5 0.1-1.0 MG/DL Aspartate Amino Transf (AST/SGOT) 14 5-34 U/L Alanine Aminotransferase (ALT/SGPT) 29 0-55 U/L Alkaline Phosphatase 35 L 40-136 U/L Total Protein 7.3 6.4-8.2 GM/DL Albumin 4.1 3.2-4.5 GM/DL Serum Test, Qualitative POSITIVE NEGATIVE My Orders Orders - BERNOT,GARETT Albuterol/Ipra Inhalation Soln (Duoneb I (08/25/18 13:45) Svn Small Volume Nebulizer (08/25/18 13:32) Chest Pa/Lat (2 View) (08/25/18 13:32) Ed Iv/Invasive Line Start (08/25/18 13:32) Cbc With Automated Diff (08/25/18 13:32) Comprehensive Metabolic Panel (08/25/18 13:32) Urine Bedside (08/25/18 14:26) Hcg,Qualitative Serum (08/25/18 14:28) Promethazine/ Codeine Syrup (Phenergan W (08/25/18 14:45) Medications Given in ED Vital Signs/I&O 08/25/18 08/25/18 08/25/18 13:25 13:52 16:13 Temp 98.0 98.0 Pulse 98 98 Resp 18 18 B/P (MAP) 146/103 (117) 132/97 (109) Pulse Ox 98 98 98 O2 Delivery Room Air Room Air Room Air Capillary Refill : Less Than 3 Seconds Blood Pressure Mean: 117 Progress Note : Time: 15:46 Progress Note I have informed patient of laboratory findings and positive rest. She wishes to continue with x-ray order. Risk were explained. Her wheezing and cough resolved after breathing treatment. Departure Impression Primary Impression: Asthma Additional Impression: Positive blood test Disposition: 01 HOME, SELF-CARE Condition: Stable/Unchanged Departure-Patient Inst. Decision time for Depature: 15:46 Referrals: [facility] (PCP) Primary Care Physician ROXI CLEMONS (Family) Primary Care Physician Patient Instructions: Asthma, Adult (DC) Add. Discharge Instructions: Use the inhaler as needed. Follow-up with your primary care provider within 1 week for further evaluation and to set up evaluation. Return back to the emergency room for worsening symptoms or concerns as needed. All discharge instructions reviewed with patient and/or family. Voiced understanding. Scripts Albuterol Sulfate (PROAIR HFA) 1 Puff Puff 2 PUFF IH Q4H, #1 PUFF 1 PUFF = 90 MCG Prov: GARETT VICTOR 08/25/18 GARETT VICTOR Aug 25, 2018 15:48
[2018-08-25 16:13] VITALS: BP 132/97
== END 2018-08-25 16:13 | disposition home or self-care (01) ==
LOC: EDUNIT# 13:21 → ER 13:22
DX: J45.909 Unspecified asthma, uncomplicated (principal); I10 Essential (primary) hypertension; G43.909 Migraine, unspecified, not intractable, without status migrainosus; F17.210 Nicotine dependence, cigarettes, uncomplicated; Z87.448 Personal history of other diseases of urinary system; Z32.01 Encounter for pregnancy test, result positive; Z98.890 Other specified postprocedural states; Z82.49 Family history of ischemic heart disease and other diseases of the circulatory system
CPT/HCPCS: 36415; 71046; 80053; 84703; 85025; 94640

== ENCOUNTER → 2018-12-16 | Outpatient (CLI) | payer MEDICAID ==
[~2018-12-16] MED LIST changes: +RT-ALBUINH IH
--- NOTE | 2018-12-16 15:41 | Diagnostic Imaging Report ---
INDICATION: survey TECHNIQUE: Multiple real-time grayscale images were obtained over the gravid uterus. COMPARISON: None FINDINGS: There are no prior studies available for comparison. There is a single live fetus in cephalic presentation. There were no abnormalities identified. The growth perimeters are fairly uniform. The placenta is posterior and there is no previa. The amniotic fluid volume is within normal limits. During the course of the exam, a small 1.3 x 1.0 cm cyst associated with the left ovary was identified. The right ovary was not well visualized. IMPRESSION: 1. There is a single live fetus approximately 22 weeks 6 days gestation plus or minus 1 week. EDC is 04/15/2019. 2. There are no abnormalities identified. 3. The growth perimeters are fairly uniform. 4. There is a small benign-appearing cyst associated the left ovary. Biometrical measurements are as follows: Biparietal 5.56 cm, age 23 weeks 0 days. Head circumference 20.59 cm, age 22 weeks 5 days. Abdominal circumference 17.96 cm, age 22 weeks 6 days. Femur length 3.95 cm, age 22 weeks 6 days. Sonographic estimate age: 22 weeks 6 days. Sonographic estimated date of delivery: 04/15/2019. Estimated Weight: 534 gm (+/- 78 gm). LMP percentile: 69%. heart rate: 149 beats per minute. number: 1 of 1. Dictated by: Dictated on workstation # [id number]
== END ==
LOC: RAD 13:17
PROVIDERS: ATTEND Nurse Practitioner Women's Health
DX: Z34.92 Encounter for supervision of normal pregnancy, unspecified, second trimester (principal); Z3A.22 22 weeks gestation of pregnancy
CPT/HCPCS: 76805

== ENCOUNTER 2019-04-01 16:37 | Outpatient (CLI) | payer MEDICAID ==
[~2019-04-01] VITALS: Ht 162.6 cm; Wt 183.0 kg
[~2019-04-01 16:37] MED LIST changes: -TRAM50TA2 PO; +TRM50T PO
[2019-04-01 16:40] VITALS: BP 129/77
--- NOTE | 2019-04-01 16:50 | NUR ---
AUREA HERNANDEZ presented to unit via from ED, accompanied by self, with c/o CRAMPING. AUREA HERNANDEZ weighed, gowned, voided, and to bed. EFHM and TOCO applied, VS taken. AUREA HERNANDEZ oriented to bed controls, call light, TV, heat, and A/C controls.
[2019-04-01] MEDS ORDERED: FLU QUADRIvalent (5+ YOA) 2019-2020 (AFLURIA) 0.5 ML IM ONE (17:00)
--- NOTE | 2019-04-01 18:35 | NUR ---
dr ronquillo called by this RN with patient c/o, cervical exam, fhr/contraction pattern and UA dip results. orders received.
--- NOTE | 2019-04-01 18:57 | NUR ---
out of WS via ambulation with s/o to home self care. d/c labor precaution instructions in hand.
--- NOTE | 2019-04-02 09:24 | Physician Query-Final Dx ---
ALICIA BONILLA 04/02/19 0924: Clinic Account Progress/Dx Physician Query: Please give diagnosis Please include # weeks gestation Date of Service Apr 01, 2019 at 16:37 FITO FERNANDEZ DO 04/03/19 1151: Clinic Account Progress/Dx DIAGNOSIS: Diagnosis 37 3/7 week gestation false labor cramping ALICIA BONILLA Apr 02, 2019 09:24 FITO FERNANDEZ DO Apr 03, 2019 11:51
== END 2019-04-01 18:57 | disposition home or self-care (01) ==
LOC: WSo 16:37 → LDRP 16:38 → WSo 18:57
PROVIDERS: ATTEND Obstetrics & Gynecology
DX: O26.899 Other specified pregnancy related conditions, unspecified trimester (principal); R10.9 Unspecified abdominal pain; Z3A.00 Weeks of gestation of pregnancy not specified
CPT/HCPCS: 99214

== ENCOUNTER 2019-04-15 23:10 | Inpatient (IN) | payer MEDICAID ==
[~2019-04-15] VITALS: Ht 162.6 cm; Wt 91.7 kg
[2019-04-15 23:37] VITALS: BP 0/0
[2019-04-15 23:47] LABS: BILIRUBIN,URINE NEGATIVE (NEGATIVE); CLARITY,URINE SL CLOUDY; COLOR,URINE YELLOW; GLUCOSE, URINE (UA) TRACE (NEGATIVE); KETONES,URINE NEGATIVE (NEGATIVE); LEUKOCYTE ESTERASE ,URINE 3+ (NEGATIVE); NITRITE,URINE NEGATIVE (NEGATIVE); PH,URINE 6.5 (5-9); PROTEIN,URINE NEGATIVE (NEGATIVE)
[2019-04-15 23:59] LABS: BACTERIA,URINE MODERATE /HPF
[2019-04-16] VITALS (60 sets, daily range): BP systolic 113–177; BP diastolic 60–118
[2019-04-16] LABS: TRICHOMONAS,URINE FEW /HPF
[2019-04-16] MEDS ORDERED: D5 LR IV SOLUTION 1,000 ML IV ONE (00:38)
[2019-04-16] MEDS ORDERED: AMPICILLIN FOR IV USE 2,000 MG in WATER (STERILE) FOR INJECTION 14.8 ML IV SCH (00:58)
[2019-04-16] MEDS ORDERED: LACTATED RINGERS 1,000 ML IV SCH (00:58)
[2019-04-16] MEDS ORDERED: MISOPROSTOL 100 MCG (CYTOTEC) TAB PO ONE (01:00)
[2019-04-16] MEDS ORDERED: TERBUTALINE INJ 1 MG/ML (BRETHINE) AMP SC PRN (01:00)
[2019-04-16] MEDS ORDERED: MINERAL OIL CONCENTRATE 99.9% 15 ML UDC TOP PRN (01:00)
[2019-04-16] MEDS: D5 LR IV SOLUTION 1,000 ML IV SCH ×3 (01:00→15:36)
[2019-04-16] MEDS ORDERED: ACET-2267 PO (01:02)
[2019-04-16] MEDS ORDERED: WATER (STERILE) FOR INJECTION 20 ML ONE (01:03)
[2019-04-16] MEDS ORDERED: AMPICILLIN FOR IV USE 2,000 MG VIAL ONE (01:03)
[2019-04-16 01:30] LABS: BASOPHILS % (AUTO) 0 % (0-10); EOSINOPHILS # (AUTO) 0.2 10^3/uL (0.0-0.3); EOSINOPHILS % (AUTO) 2 % (0-10); HEMATOCRIT 33 % (35-52); HEMOGLOBIN 10.8 G/DL (11.5-16.0); LYMPHOCYTES % (AUTO) 18 % (12-44); MEAN CORPUSCULAR HEMOGLOBIN 32 PG (25-34); MEAN CORPUSCULAR HGB CONC 33 G/DL (32-36); MEAN CORPUSCULAR VOLUME 98 FL (80-99); MEAN PLATELET VOLUME 9.8 FL (7.4-10.4); MONOCYTES # (AUTO) 1.4 X 10^3 (0.0-1.0); MONOCYTES % (AUTO) 13 % (0-12); NEUTROPHILS # (AUTO) 7.4 X 10^3 (1.8-7.8); NEUTROPHILS % (AUTO) 68 % (42-75); PLATELET COUNT 309 10^3/uL (130-400); RED CELL DISTRIBUTION WIDTH 14.2 % (10.0-14.5)
[2019-04-16] MEDS ORDERED: ZOLPIDEM 5 MG (AMBIEN) TAB PO ONE (01:30)
[2019-04-16] MEDS ORDERED: morphine INJ 10 MG/ML 1ML (SYR OR VIAL) ONE (03:04)
[2019-04-16] MEDS ORDERED: AMPICILLIN FOR IV USE 1,000 MG in WATER (STERILE) FOR INJECTION 7.4 ML IV SCH (05:00)
[2019-04-16] MEDS: morphine INJ 4 MG/ML 1 ML (VIAL/SYRINGE) IVP PRN ×3 (05:18→13:17)
[2019-04-16] MEDS: MISOPROSTOL 100 MCG (CYTOTEC) TAB PO SCH ×4 (05:57→17:44)
[2019-04-16] MEDS: CATHETER FLUSH 10 ML SYR IV SCH ×3 (05:58→23:26)
[2019-04-16] MEDS ORDERED: morphine INJ 10 MG/ML 1ML (SYR OR VIAL) IVP STA ×3 (07:58→13:15)
[2019-04-16] MEDS ORDERED: metroNIDAZOLE 500MG/100ML IVPB 100 ML IV ONE (08:00)
[2019-04-16] MEDS ORDERED: metroNIDAZOLE 500 MG (FLAGYL) TAB ONE (08:02)
[2019-04-16] MEDS ORDERED: metroNIDAZOLE 500 MG (FLAGYL) TAB PO ONE (08:15)
[2019-04-16] MEDS ORDERED: ONDANSETRON 4 MG/2 ML (SDV) Z0FRAN ONE (08:18)
[2019-04-16] MEDS ORDERED: metroNIDAZOLE 500 MG (FLAGYL) TAB PO NR (08:20)
[2019-04-16] MEDS ORDERED: morphine INJ 10 MG/ML 1ML (SYR OR VIAL) IVP NR ×2 (08:21→13:43)
[2019-04-16] MEDS: ONDANSETRON 4 MG/2 ML (SDV) Z0FRAN IVP PRN ×2 (08:24→13:23)
[2019-04-16] MEDS ORDERED: OXYTOCIN PRE-MIX DRIP 500 ML IV ONE (14:11)
[2019-04-16] MEDS ORDERED: OXYTOCIN PRE-MIX DRIP 500 ML IV SCH ×2 (14:13→20:47)
[2019-04-16] MEDS ORDERED: PROMETHAZINE INJ 25 MG/ML (PHENERGAN) AMP IVP PRN (15:00)
[2019-04-16] MEDS ORDERED: BUTORPHANOL INJ 2 MG/ML (STADOL) VIAL IV PRN (15:00)
[2019-04-16] MEDS ORDERED: fentaNYL INJECTION 100 MCG/2 ML AMP ONE ×2 (15:34→16:12)
[2019-04-16] MEDS ORDERED: BUPIVACAINE 0.25% 30 ML (SENSORCAINE) VIAL ONE ×2 (15:34→16:12)
[2019-04-16 16:03] LABS: AMPHETAMINE SCREEN, URINE NEGATIVE (NEGATIVE); BARBITURATE SCREEN URINE NEGATIVE (NEGATIVE); BENZODIAZEPINES SCREEN URINE NEGATIVE (NEGATIVE); CANNABINOID SCREEN, URINE NEGATIVE (NEGATIVE); COCAINE SCREEN URINE NEGATIVE (NEGATIVE); METHADONE STAT NEGATIVE (NEGATIVE); METHAMPHETAMINE SCREEN URINE S NEGATIVE (NEGATIVE); OPIATE SCREEN URINE NEGATIVE (NEGATIVE); OXYCODONE STAT NEGATIVE (NEGATIVE); PROPOXYPHENE STAT NEGATIVE (NEGATIVE); TRICYCLIC ANTIDEPRESSANTS SCRE NEGATIVE (NEGATIVE)
[2019-04-16] MEDS ORDERED: LACTATED RINGERS 1,000 ML IV ONE ×2 (16:44)
[2019-04-16] MEDS ORDERED: NALOXONE 0.4 MG/ML 1 ML (NARCAN) VIAL IV PRN (16:45)
[2019-04-16] MEDS ORDERED: EPIDURAL (SUFENTA 0.6MCG/ML BUPIVA 0.125%) 100 ML BAG EPI PRN (16:45)
[2019-04-16] MEDS ORDERED: ONDANSETRON 4 MG/2 ML (SDV) Z0FRAN IV PRN (16:45)
[2019-04-16] MEDS ORDERED: LIDOCAINE/EPI 2% 1:200,00 (XYLOCAINE) 10 ML VIAL ONE ×2 (19:29)
--- NOTE | 2019-04-16 20:54 | History & Physical-OB ---
OB - Chief Complaint & HPI Date/Time Date of Admission: Date of Admission: Apr 16, 2019 at 00:34 Date seen by a Provider: Apr 16, 2019 Time Seen by a Provider: 08:31 Chief Complaint/History OB-Reason for Admission/Chief: Onset of Labor (Patient presented on 04/15 with contractions. Cervix unchanged after 1 hour, but contractions every 4-5 minutes and then every 2-4 minutes. So was admitted for labor. GBS suspected to be +, but results not available. Ampicillin started. However, this am, the records revealed - GBS. So it was stopped. Given oral misoprostol due to cervix 1 cm high and long) Hx : 4 Hx Para: 2 Expected Date of Delivery: Apr 19, 2019 Gestational Age in Weeks: 39 Gestational Age in Days: 3 Admission Nurse Assessment Rev: Yes History of Labs A+ VDRL NR HIV - GC/Ch - HBSAg - Hep C - GBS - Rub I Allergies and Home Medications Allergies Coded Allergies: NKANo Known Allergies (Unverified Allergy, Mild, 11/05/08) Home Medications Acetaminophen 500 Mg Tablet, 1,000 MG PO PRN, (Reported) Albuterol Sulfate 1 Puff Puff, 2 PUFF IH Q4H 1 PUFF = 90 MCG Prescribed by: GARETT VICTOR on 08/25/18 1547 Patient Home Medication List Home Medication List Reviewed: Yes OB - History Hx of Present Care: Yes Ultrasounds: Normal mid trimester US Obstetrical Complications: None Medical Complications: None Information Induced Hypertension: No Maternal Gestational Diabetes: No Hemorrhage: No Obstetrical History Hx : 4 Hx Para: 2 Hx Termination: No Hx Total # of Abortions (Spona: 1 Hx Multiple Gestation: No Hx Stillbirth: No Hx Complication: No Hx Induced Hypertens: No Hx Maternal Gestational Diabet: No Delivery History Hx Dystocia: No Hx Large For Gestational Age I: No Hx Small for Gestational Age I: No Hx Section: No Hx Vaginal Delivery Post C-Sec: No Hx Blood Disorders: No Patient Past Medical History NC Social History/Family History HIV/AIDS: No Recent Infectious Disease Expo: No Alcohol Use: Denies Use Recreational Drug Use: No (reports no history of drug use,possible Ed visit with + UDS in past. ) 2nd Hand Smoke Exposure: Yes Immunizations Hepatitis A: Yes Hepatitis B: Yes Tetanus Booster (TDap): Less than 5yrs (02/05/2019) Date of Influenza Vaccine: Dec 19, 2011 Rubella: immune RPR/VDRL: Negative GBS Status: Negative HBsAG: Negative OB - Admission Exam Physical Exam Vitals: Vital Signs 04/16/19 04/16/19 04/16/19 16:35 18:45 19:00 Temp 36.4 Pulse 94 Resp 18 B/P (MAP) 126/81 (96) Pulse Ox 99 O2 Delivery Room Air HEENT: NCAT Heart: Rhythm Normal Lungs: Clear Abdomen: Gravid Extremities: Normal Cervical Dilatation: 1cm Effacement: 75% Station: -3 Membranes: Intact (AROM clear) Amniotic Fluid: Clear Heart Rate: 140's Accelerations: Accelerations Present Decelerations: Early Decelerations Short Term Variability: Present Fci Variability: Average (6-25) Contractions on Admission: < 5 Minutes Apart Labs Laboratory Tests Test 04/15/19 23:30 04/16/19 01:15 Range/Units Urine Color YELLOW Urine Clarity SL CLOUDY Urine pH 6.5 5-9 Urine Specific [place] 1.010 L 1.016-1.022 Urine Protein NEGATIVE NEGATIVE Urine Glucose (UA) TRACE H NEGATIVE Urine Ketones NEGATIVE NEGATIVE Urine Nitrite NEGATIVE NEGATIVE Urine Bilirubin NEGATIVE NEGATIVE Urine Urobilinogen 0.2 < = 1.0 MG/DL Urine Leukocyte Esterase 3+ H NEGATIVE Urine RBC (Auto) NEGATIVE NEGATIVE Urine RBC NONE /HPF Urine WBC 10-25 H /HPF Urine Squamous Epithelial Cells 5-10 /HPF Urine Crystals NONE /LPF Urine Bacteria MODERATE H /HPF Urine Casts NONE /LPF Urine Mucus SMALL H /LPF Urine Trichomonas FEW H /HPF Urine Culture Indicated CULTURE PENDING Urine Opiates Screen NEGATIVE NEGATIVE Urine Oxycodone Screen NEGATIVE NEGATIVE Urine Methadone Screen NEGATIVE NEGATIVE Urine Propoxyphene Screen NEGATIVE NEGATIVE Urine Barbiturates Screen NEGATIVE NEGATIVE Ur Tricyclic Antidepressants Screen NEGATIVE NEGATIVE Urine Phencyclidine Screen NEGATIVE NEGATIVE Urine Amphetamines Screen NEGATIVE NEGATIVE Urine Methamphetamines Screen NEGATIVE NEGATIVE Urine Benzodiazepines Screen NEGATIVE NEGATIVE Urine Cocaine Screen NEGATIVE NEGATIVE Urine Cannabinoids Screen NEGATIVE NEGATIVE White Blood Count 11.0 4.3-11.0 10^3/uL Red Blood Count 3.36 L 4.35-5.85 10^6/uL Hemoglobin 10.8 L 11.5-16.0 G/DL Hematocrit 33 L 35-52 % Mean Corpuscular Volume 98 80-99 FL Mean Corpuscular Hemoglobin 32 25-34 PG Mean Corpuscular Hemoglobin Concent 33 32-36 G/DL Red Cell Distribution Width 14.2 10.0-14.5 % Platelet Count 309 130-400 10^3/uL Mean Platelet Volume 9.8 7.4-10.4 FL Neutrophils (%) (Auto) 68 42-75 % Lymphocytes (%) (Auto) 18 12-44 % Monocytes (%) (Auto) 13 H 0-12 % Eosinophils (%) (Auto) 2 0-10 % Basophils (%) (Auto) 0 0-10 % Neutrophils # (Auto) 7.4 1.8-7.8 X 10^3 Lymphocytes # (Auto) 2.0 1.0-4.0 X 10^3 Monocytes # (Auto) 1.4 H 0.0-1.0 X 10^3 Eosinophils # (Auto) 0.2 0.0-0.3 10^3/uL Basophils # (Auto) 0.0 0.0-0.1 10^3/uL OB - Assessment/Plan/Diagnosis Assessment Assessment: active labor (laten), other (+ trich) Admission Dx 1. Labor 2. + trich Admission Status: Inpatient Order (span 2 midnights) Reason for Inpatient Admission: labor Plan Plan: Expectant Management (AROM. Has had misotprostol due to thick undilated cervix despite the contractions. ) Other Plan anticipate FITO Paredes DO Apr 16, 2019 20:54
[2019-04-16] MEDS ORDERED: WITCH HAZEL(TUCKS) 40 EA JAR TOP PRN (21:00)
[2019-04-16] MEDS ORDERED: DIBUCAINE (NUPERCAINAL) 1% OINT 30 GM TOP PRN (21:00)
[2019-04-16] MEDS ORDERED: BENZOCAINE/MENTHOL (DERMOPLAST) 60 ML CAN TP PRN (21:00)
[2019-04-16] MEDS ORDERED: MEASLES,MUMPS,RUBELLA 1 EA INJ SQ ONE (21:00)
[2019-04-16] MEDS ORDERED: TETANUS,DIPTH,PERTUSS P/F (BOOSTRIX) 0.5 ML VIAL IM ONE (21:00)
--- NOTE | 2019-04-16 21:00 | OB Labor & Delivery Record ---
Vag Delivery Note Vag Delivery Note Date of Delivery: 04/16/19 Preoperative Diagnosis: Eliana Owen is a 28 /Para 4 / 2,Gestational Age 39 4/7 weeks in latent labor Postoperative Diagnosis: Same Surgeon: FITO FERNANDEZ Anesthesia: epidurual Delivery Type: Findings: Viable male infant, apgars pending, weight pending Lacerations: none Intact placenta with 3 vessel cord. No nuchal cord, body cord. Mild shoulder dystocia with Yovany and suprapubic manipulation of the anterior shoulderr Estimated Blood Loss: ml Complications: None Condition: Stable Description of Procedure: The patient is a 28 year old female who presented in latent labor. She was admitted and informed consent was obtained. Her labor course was remarkable for misoprostol, ROM, GBS for prophylaxis due to suspected GBS +, but dc once the results were available. + trich in urine, flagyl given. She progressed to complete dilatation and began to push. She was then set up for delivery. The 's head was delivered atraumatically in the RICK position. The shoulders and remainder of the infant's body were then delivered without difficulty. Upon delivery, the head was held below the level of the perineum and the mouth and nares were bulb suctioned. The cord was doubly clamped and cut and the was handed off to the pediatric staff. An intact placenta with 3-vessel cord delivered via Dominic and there was found to be minimal bleeding.~ Vigorous fundal massage was performed and the fundus was found to be firm. IV oxytocin was given. Examination of the vagina and perineum revealed no laceration2. Following the repair, sponge, instrument and needle counts were correct. Mom and baby were both in stable condition in the labor suite. Vitals - Labs Vital Signs - I&O Vital Signs Date Time Temp Pulse Resp B/P (MAP) Pulse Ox O2 Delivery O2 Flow Rate FiO2 04/16/19 19:00 Room Air 04/16/19 18:45 94 18 126/81 (96) 99 Room Air 04/16/19 18:30 97 18 127/78 (94) 99 Room Air 04/16/19 18:15 96 18 129/80 (96) 100 Room Air 04/16/19 18:00 96 18 134/77 (96) 100 Room Air 04/16/19 17:45 89 18 136/85 (102) 100 Room Air 04/16/19 17:30 79 18 130/85 (100) 98 Room Air 04/16/19 17:15 98 18 118/84 (95) 100 Room Air 04/16/19 17:02 88 18 120/79 (93) 98 Room Air 04/16/19 17:00 75 18 116/81 (93) 98 Room Air 04/16/19 16:58 78 18 123/81 (95) 98 Room Air 04/16/19 16:53 91 18 123/80 (94) 98 Room Air 04/16/19 16:50 103 18 124/84 (97) 98 Room Air 04/16/19 16:45 83 18 128/87 (101) 98 Room Air 04/16/19 16:40 95 18 132/89 (103) 98 Room Air 04/16/19 16:35 36.4 94 18 130/84 (99) 98 Room Air 04/16/19 16:30 98 18 122/84 (97) 98 Room Air 04/16/19 16:25 100 18 135/93 (107) 98 Room Air 04/16/19 16:20 101 18 134/91 (105) 98 Room Air 04/16/19 16:15 93 18 136/92 (107) 98 Room Air 04/16/19 16:10 100 18 127/91 (103) 98 Room Air 04/16/19 16:05 109 18 127/84 (98) 98 Room Air 04/16/19 16:00 107 18 138/86 (103) 98 Room Air 04/16/19 15:55 99 18 129/93 (105) 99 Room Air 04/16/19 15:45 96 18 132/87 (102) 99 Room Air 04/16/19 15:30 79 18 135/92 (106) Room Air 04/16/19 15:15 86 18 136/95 (109) Room Air 04/16/19 15:00 93 18 133/93 (106) Room Air 04/16/19 14:45 93 18 123/80 (94) Room Air 04/16/19 14:30 84 18 119/75 (90) Room Air 04/16/19 14:20 95 18 121/78 (92) Room Air 04/16/19 14:00 Room Air 04/16/19 13:10 36.3 95 18 129/88 (102) Room Air 04/16/19 13:00 Room Air 04/16/19 12:10 90 18 125/80 (95) Room Air 04/16/19 12:00 Room Air 04/16/19 11:10 36.6 99 18 119/79 (92) Room Air 04/16/19 11:00 Room Air 04/16/19 10:10 101 18 123/84 (97) Room Air 04/16/19 10:00 Room Air 04/16/19 09:10 111 18 127/88 (101) Room Air 04/16/19 09:00 99 Room Air 04/16/19 08:10 101 18 122/83 (96) Room Air 04/16/19 07:38 36.4 108 18 128/98 (108) Room Air 04/16/19 07:10 103 18 140/100 (113) Room Air 04/16/19 06:15 104 18 140/98 (112) Room Air 04/16/19 05:10 105 20 160/100 (120) Room Air 04/16/19 04:10 102 20 177/118 (137) Room Air 04/16/19 03:10 105 20 134/94 (107) Room Air 04/16/19 02:05 110 18 134/86 (102) Room Air 04/16/19 01:35 36.7 104 18 137/95 (109) Room Air 04/16/19 01:18 36.9 114 18 0 Room Air 04/16/19 00:00 36.9 114 18 138/91 (107) Room Air 04/15/19 23:37 36.9 0 0 0 Room Air l I & O 04/16/19 07:00 Intake Total 1022.2 ml Balance 1022.2 ml Labs Laboratory Tests 04/15/19 23:30: Urine Color YELLOW, Urine Clarity SL CLOUDY, Urine pH 6.5, Urine Specific [place] 1.010L, Urine Protein NEGATIVE, Urine Glucose (UA) TRACEH, Urine Ketones NEGATIVE, Urine Nitrite NEGATIVE, Urine Bilirubin NEGATIVE, Urine Urobilinogen 0.2, Urine Leukocyte Esterase 3+H, Urine RBC (Auto) NEGATIVE, Urine RBC NONE, Urine WBC 10-25H, Urine Squamous Epithelial Cells 5-10, Urine Crystals NONE, Urine Bacteria MODERATEH, Urine Casts NONE, Urine Mucus SMALLH, Urine Tri chomonas FEWH, Urine Culture Indicated CULTURE PENDING, Urine Opiates Screen NEGATIVE, Urine Oxycodone Screen NEGATIVE, Urine Methadone Screen NEGATIVE, Urine Propoxyphene Screen NEGATIVE, Urine Barbiturates Screen NEGATIVE, Ur Tricyclic Antidepressants Screen NEGATIVE, Urine Phencyclidine Screen NEGATIVE, Urine Amphetamines Screen NEGATIVE, Urine Methamphetamines Screen NEGATIVE, Urine Benzodiazepines Screen NEGATIVE, Urine Cocaine Screen NEGATIVE, Urine Cannabinoids Screen NEGATIVE 04/16/19 01:15: White Blood Count 11.0, Red Blood Count 3.36L, Hemoglobin 10.8L, Hematocrit 33L, Mean Corpuscular Volume 98, Mean Corpuscular Hemoglobin 32, Mean Corpuscular Hemoglobin Concent 33, Red Cell Distribution Width 14.2, Platelet Count 309, Mean Platelet Volume 9.8, Neutrophils (%) (Auto) 68, Lymphocytes (%) (Auto) 18, Monocytes (%) (Auto) 13H, Eosinophils (%) (Auto) 2, Basophils (%) (Auto) 0, Neutrophils # (Auto) 7.4, Lymphocytes # (Auto) 2.0, Monocytes # (Auto) 1.4H, Eosinophils # (Auto) 0.2, Basophils # (Auto) 0.0 Microbiology 04/15/19 Urine Culture - Final, Complete NO GROWTH FITO FERNANDEZ DO Apr 16, 2019 20:59
[2019-04-16] MEDS: IBUPROFEN 600 MG (MOTRIN) TAB PO SCH (21:44)
[2019-04-16] MEDS ORDERED: CATHETER FLUSH 10 ML SYR IV SCH (22:00)
[2019-04-16] MEDS: metroNIDAZOLE 500 MG (FLAGYL) TAB PO SCH (22:53)
[2019-04-16] MEDS: DOCUSATE SODIUM 100 MG (COLACE) CAP PO SCH (22:54)
[2019-04-16] MEDS: ACETAMINOPHEN 500 MG TAB (TYLENOL) PO SCH (23:27)
[2019-04-17 00:15] VITALS: BP 121/80
[2019-04-17] MEDS: IBUPROFEN 600 MG (MOTRIN) TAB PO SCH ×4 (04:00→22:41)
[2019-04-17 04:27] VITALS: BP 131/85
[2019-04-17 06:11] LABS: BASOPHILS % (AUTO) 0 % (0-10); EOSINOPHILS # (AUTO) 0.3 10^3/uL (0.0-0.3); EOSINOPHILS % (AUTO) 2 % (0-10); HEMATOCRIT 32 % (35-52); HEMOGLOBIN 10.6 G/DL (11.5-16.0); LYMPHOCYTES % (AUTO) 15 % (12-44); MEAN CORPUSCULAR HEMOGLOBIN 33 PG (25-34); MEAN CORPUSCULAR HGB CONC 33 G/DL (32-36); MEAN CORPUSCULAR VOLUME 99 FL (80-99); MEAN PLATELET VOLUME 10.1 FL (7.4-10.4); MONOCYTES # (AUTO) 1.4 X 10^3 (0.0-1.0); MONOCYTES % (AUTO) 11 % (0-12); NEUTROPHILS # (AUTO) 9.6 X 10^3 (1.8-7.8); NEUTROPHILS % (AUTO) 72 % (42-75); PLATELET COUNT 262 10^3/uL (130-400); RED CELL DISTRIBUTION WIDTH 13.8 % (10.0-14.5); WHITE BLOOD COUNT 13.2 10^3/uL (4.3-11.0)
--- NOTE | 2019-04-17 06:50 | Anesthesia-Regional Post-Op ---
Regional Patient Condition Mental Status: Alert, Oriented x3 Circulation: Same as Pre-Op Headache: Absent Sensation: Full Recovery Motor Block: Absent Post Op Complications Complications None Follow Up Care/Instructions Patient Instructions None needed. Anesthesia/Patient Condition Patient is doing well, no complaints, stable vital signs, no apparent adverse anesthesia problems. No complications reported per nursing. MARILYNN HIGHTOWER CRNA Apr 17, 2019 06:50
[2019-04-17 08:30] VITALS: BP 131/87
[2019-04-17] MEDS: ACETAMINOPHEN 500 MG TAB (TYLENOL) PO SCH ×2 (09:13→22:00)
[2019-04-17] MEDS: FERROUS SULF 325 MG (IRON) TAB PO SCH (10:26)
[2019-04-17] MEDS: metroNIDAZOLE 500 MG (FLAGYL) TAB PO SCH ×2 (10:26→20:50)
[2019-04-17] MEDS: DOCUSATE SODIUM 100 MG (COLACE) CAP PO SCH ×2 (10:26→20:50)
[2019-04-17] MEDS: PRENATAL VITAMIN 1 EA TAB PO SCH (10:26)
[2019-04-17 16:20] VITALS: BP 121/80
[2019-04-17 22:37] VITALS: BP 111/66
[2019-04-18 04:10] VITALS: BP 116/77
[2019-04-18] MEDS: IBUPROFEN 600 MG (MOTRIN) TAB PO SCH ×3 (04:12→16:13)
[2019-04-18 09:00] VITALS: BP 131/81
[2019-04-18] MEDS ORDERED: IBUP-844 PO (09:00)
[2019-04-18] MEDS ORDERED: PNV1TABL67 PO (09:00)
[2019-04-18] MEDS ORDERED: ACET-2267 PO (09:00)
[2019-04-18] MEDS ORDERED: METR-145 PO (09:00)
--- NOTE | 2019-04-18 09:01 | Discharge Inst-Women's Service ---
Discharge Inst-Women's Serv Depart Medication/Instructions New, Converted or Re-Newed RX: Transmitted to Pharmacy Final Diagnosis labor +trichomonas vaginal delivery epidural 39 + week gestation Problems Reviewed?: Yes Consults/Follow Up Additional Follow Up: Yes (6 weeks ) Activity Activity: Activity as Tolerated Driving Instructions: You May Drive NO SMOKING: NO SMOKING Nothing Inside Vagina: No Douching, No [place], No Tampons Diet Discharge Diet: No Restrictions Symptoms to Report to : Swelling Increased, Bleeding Excessive, Pain Increased, Fever Over 101 Degrees F, Vaginal Bleeding Increase, Cramps in Feet or Legs, Vaginal Discharge Foul For Any Problems or Questions: Contact Your Physician FITO FERNANDEZ DO Apr 18, 2019 09:01
[2019-04-18] MEDS: PRENATAL VITAMIN 1 EA TAB PO SCH (09:02)
[2019-04-18] MEDS: metroNIDAZOLE 500 MG (FLAGYL) TAB PO SCH ×2 (09:02→16:13)
[2019-04-18] MEDS: DOCUSATE SODIUM 100 MG (COLACE) CAP PO SCH (09:02)
[2019-04-18] MEDS: FERROUS SULF 325 MG (IRON) TAB PO SCH (09:02)
--- NOTE | 2019-04-18 09:02 | Postpartum Progress Note ---
Note Note Day # [] Subjective: Patient is without complaints. Ambulating, voiding. Tolerating a regular diet without nausea or vomiting. Normal lochia. Pain is well controlled with oral pain medications. [] feeding. [] Objective: [] Physical Exam: General - Alert and oriented, no apparent distress Abdomen - Soft, appropriately tender to palpation, non-distended, fundus firm at umbilicus Extremities - no edema, negative Christophe's bilaterally [] Assessment: [] post- day # [], status post [] vaginal delivery. Recovering well, hemodynamically stable [] Plan: Routine care. Encourage breast feeding. Encourage ambulation. Ferrous sulfate supplementation. Plan for discharge [] Vitals - Labs Vital Signs - I&O Vital Signs Date Time Temp Pulse Resp B/P (MAP) Pulse Ox O2 Delivery O2 Flow Rate FiO2 04/18/19 04:10 36.3 79 18 116/77 (90) 97 Room Air 04/17/19 22:37 36.8 75 18 111/66 (81) 98 Room Air 04/17/19 16:20 36.6 94 20 121/80 (94) 99 Room Air Labs Laboratory Tests Test 04/15/19 23:30 04/16/19 00:34 04/16/19 01:15 04/17/19 05:37 Range/Units Urine Color YELLOW Urine Clarity SL CLOUDY Urine pH 6.5 5-9 Urine Specific Larsen 1.010 L 1.016-1.022 Urine Protein NEGATIVE NEGATIVE Urine Glucose (UA) TRACE H NEGATIVE Urine Ketones NEGATIVE NEGATIVE Urine Nitrite NEGATIVE NEGATIVE Urine Bilirubin NEGATIVE NEGATIVE Urine Urobilinogen 0.2 < = 1.0 MG/DL Urine Leukocyte Esterase 3+ H NEGATIVE Urine RBC (Auto) NEGATIVE NEGATIVE Urine RBC NONE /HPF Urine WBC 10-25 H /HPF Urine Squamous Epithelial Cells 5-10 /HPF Urine Crystals NONE /LPF Urine Bacteria MODERATE H /HPF Urine Casts NONE /LPF Urine Mucus SMALL H /LPF Urine Trichomonas FEW H /HPF Urine Culture Indicated CULTURE PENDING Urine Opiates Screen NEGATIVE NEGATIVE Urine Oxycodone Screen NEGATIVE NEGATIVE Urine Methadone Screen NEGATIVE NEGATIVE Urine Propoxyphene Screen NEGATIVE NEGATIVE Urine Barbiturates Screen NEGATIVE NEGATIVE Ur Tricyclic Antidepressants Screen NEGATIVE NEGATIVE Urine Phencyclidine Screen NEGATIVE NEGATIVE Urine Amphetamines Screen NEGATIVE NEGATIVE Urine Methamphetamines Screen NEGATIVE NEGATIVE Urine Benzodiazepines Screen NEGATIVE NEGATIVE Urine Cocaine Screen NEGATIVE NEGATIVE Urine Cannabinoids Screen NEGATIVE NEGATIVE Lab Scanned Report Referred Lab Report [id number] White Blood Count 11.0 13.2 H 4.3-11.0 10^3/uL Red Blood Count 3.36 L 3.26 L 4.35-5.85 10^6/uL Hemoglobin 10.8 L 10.6 L 11.5-16.0 G/DL Hematocrit 33 L 32 L 35-52 % Mean Corpuscular Volume 98 99 80-99 FL Mean Corpuscular Hemoglobin 32 33 25-34 PG Mean Corpuscular Hemoglobin Concent 33 33 32-36 G/DL Red Cell Distribution Width 14.2 13.8 10.0-14.5 % Platelet Count 309 262 130-400 10^3/uL Mean Platelet Volume 9.8 10.1 7.4-10.4 FL Neutrophils (%) (Auto) 68 72 42-75 % Lymphocytes (%) (Auto) 18 15 12-44 % Monocytes (%) (Auto) 13 H 11 0-12 % Eosinophils (%) (Auto) 2 2 0-10 % Basophils (%) (Auto) 0 0 0-10 % Neutrophils # (Auto) 7.4 9.6 H 1.8-7.8 X 10^3 Lymphocytes # (Auto) 2.0 2.0 1.0-4.0 X 10^3 Monocytes # (Auto) 1.4 H 1.4 H 0.0-1.0 X 10^3 Eosinophils # (Auto) 0.2 0.3 0.0-0.3 10^3/uL Basophils # (Auto) 0.0 0.0 0.0-0.1 10^3/uL Thyroid Stimulating Hormone (TSH) 0.53 0.35-4.94 UIU/ML Microbiology 04/15/19 Urine Culture - Final, Complete NO GROWTH FITO FERNANDEZ DO Apr 18, 2019 09:02
[2019-04-18 16:00] VITALS: BP 126/83
== END 2019-04-18 16:30 | disposition home or self-care (01) | DRG 807 ==
LOC: WSo 23:10 → LDRP 23:11 → WSo 04-16 00:33 → LDRP 04-16 00:34
PROVIDERS: ADMIT Obstetrics & Gynecology; ATTEND Obstetrics & Gynecology
PROC: 10E0XZZ Delivery of Products of Conception, External Approach (ICD-10-PCS; principal; 2019-04-16)
DX: O76 Abnormality in fetal heart rate and rhythm complicating labor and delivery (principal); Z37.0 Single live birth; Z3A.39 39 weeks gestation of pregnancy; O66.0 Obstructed labor due to shoulder dystocia; A59.9 Trichomoniasis, unspecified; O75.89 Other specified complications of labor and delivery; Z23 Encounter for immunization
CPT/HCPCS: 36415; 80306; 81000; 84443; 85025; 86850; 86900; 86901; 87088; 99212

== ENCOUNTER 2020-04-01 14:33 | Observation (INO) | payer MEDICAID ==
[~2020-04-01] VITALS: Ht 162.6 cm; Wt 69.9 kg
[2020-04-01] VITALS (10 sets, daily range): BP systolic 126–152; BP diastolic 64–96
[~2020-04-01 14:33] MED LIST changes: +ACET-2267 PO; +IBUP-844 PO; +METR-145 PO; +PNV1TABL67 PO
--- NOTE | 2020-04-01 14:41 | NUR ---
evaporator supervisor contacted for a bed.
--- NOTE | 2020-04-01 14:47 | ED Abdominal Pain ---
General Chief Complaint: Female Reproductive Stated Complaint: VAGINAL BLEEDING Nursing Triage Note: PT TO ROOM 08 VIA W/C WITH C/O ABNORMAL VAGINAL BLEEDING. PT STATES SHE DOES NOT KNOW IF SHE IS . Sepsis Screen: No Definite Risk Source of Information: Patient Exam Limitations: No Limitations History of Present Illness Date Seen by Provider: Apr 01, 2020 Time Seen by Provider: 14:45 Initial Comments To ER with vaginal bleeding onset this morning. Has not used any pads or tampons. Does not believe herself to be her last menstrual period was 1.5 months ago. She is G5, P3. Dr. Fernandez has delivered previous babies. Timing/Duration: 4-6 Hours Severity/Quality: Moderate Location: Generalized Abdomen Radiation: No Radiation Activities at Onset: None Allergies and Home Medications Allergies Coded Allergies: NKANo Known Allergies (Unverified Allergy, Mild, 11/05/08) Home Medications Acetaminophen 500 Mg Tablet, 1,000 MG PO PRN Prescribed by: FITO FERNANDEZ on 04/18/19 0900 Albuterol Sulfate 1 Puff Puff, 2 PUFF IH Q4H 1 PUFF = 90 MCG Prescribed by: GARETT VICTOR on 08/25/18 1547 Ibuprofen 600 Mg Tablet, 600 MG PO Q6HR Prescribed by: FITO FERNANDEZ on 04/18/19 0900 Metronidazole 500 Mg Tablet, 500 MG PO TID Prescribed by: FITO FERNANDEZ on 04/18/19 0900 Pnv with Ca,No.72/Iron/FA 1 Each Tablet, 1 EA PO DAILY@0700 Prescribed by: FITO FERNANDEZ on 04/18/19 0900 Patient Home Medication List Home Medication List Reviewed: Yes Review of Systems Review of Systems Constitutional: see HPI EENTM: No Symptoms Reported Respiratory: No Symptoms Reported Cardiovascular: No Symptoms Reported Gastrointestinal: See HPI Genitourinary: No Symptoms Reported Musculoskeletal: no symptoms reported Skin: no symptoms reported Psychiatric/Neurological: No Symptoms Reported Endocrine: No Symptoms Reported Past Ywxjihj-Eelzcr-Jjpklk Hx Patient Social History Alcohol Use: Denies Use Smoking Status: Current Everyday Smoker Type Used: Cigarettes 2nd Hand Smoke Exposure: Yes Recent Infectious Disease Expo: No Recent Hopitalizations: No Immunizations Up To Date Tetanus Booster (TDap): Less than 5yrs PED Vaccines UTD: Yes Date of Influenza Vaccine: Dec 19, 2011 Seasonal Allergies Seasonal Allergies: No Past Medical History Surgeries: Yes (EMERGENT D & C) Respiratory: No Cardiac: Yes Hypertension Neurological: No Headaches /Migraines Reproductive Disorders: Yes (ovarian cyst) Female Reproductive Disorders: Ovarian Cyst HIV/AIDS: No Genitourinary: No Gastrointestinal: No Musculoskeletal: No Endocrine: No HEENT: No Cancer: No Psychosocial: No Integumentary: No Blood Disorders: No Family Medical History Diabetes mellitus GRANDMOTHER, MATERNAL FH: hepatitis 19 MOTHER Hypertension 19 MOTHER No Pertinent Family Hx Physical Exam Vital Signs Vital Signs - First Documented 04/01/20 14:34 Temp 36.6 Pulse 117 B/P (MAP) 139/94 (109) Capillary Refill : Less Than 3 Seconds Height/Weight/BMI Height: 5'4.00" Weight: 150lbs. 0oz. [id number]; 26.00 BMI Method:Stated General Appearance: WD/WN, no apparent distress Neck: non-tender, full range of motion Respiratory: no respiratory distress, no accessory muscle use Cardiovascular: no murmur, other (Tachycardia rate of 115 sinus) Gastrointestinal: soft, other (Abdomen is gravid. Fundus at the xiphoid process. Bedside ultrasound shows a fetus of advanced gestational age.) Extremities: normal range of motion, non-tender Neurologic/Psychiatric: alert, normal mood/affect, oriented x 3 Skin: normal color, warm/dry Progress/Results/Core Measures Results/Orders My Orders Orders - ARPAN MEREDITH APRN Hcg,Quantitative (04/01/20 14:42) Ua Culture If Indicated (04/01/20 14:42) Drug Screen Stat (Urine) (04/01/20 14:42) Cbc With Automated Diff (04/01/20 14:42) Comprehensive Metabolic Panel (04/01/20 14:42) Type And Screen (04/01/20 14:42) Ed Iv/Invasive Line Start (04/01/20 14:42) Vital Signs/I&O 04/01/20 14:34 Temp 36.6 Pulse 117 B/P (MAP) 139/94 (109) Blood Pressure Mean: 109 Departure Communication (Admissions) Spoke with , accepts patient to women services. Impression Primary Impression: Vaginal bleeding during Disposition: ADMITTED INPATIENT Condition: Stable Admissions Decision to Admit Reason: Admit from ER (General) Decision to Admit/Date: Apr 01, 2020 Time/Decision to Admit Time: 14:47 Departure-Patient Inst. Referrals: [facility]/Demar (PCP) Primary Care Physician ROXI CLEMONS (Family) Primary Care Physician ARPAN MEREDITH APRN Apr 01, 2020 14:47
[2020-04-01 14:48] LABS: BASOPHILS # (AUTO) 0.1 10^3/uL (0.0-0.1); BASOPHILS % (AUTO) 1 % (0-10); EOSINOPHILS # (AUTO) 0.3 10^3/uL (0.0-0.3); EOSINOPHILS % (AUTO) 2 % (0-10); HEMATOCRIT 34 % (35-52); HEMOGLOBIN 11.5 g/dL (11.5-16.0); LYMPHOCYTES # (AUTO) 1.7 10^3/uL (1.0-4.0); LYMPHOCYTES % (AUTO) 14 % (12-44); MEAN CORPUSCULAR HEMOGLOBIN 33 pg (25-34); MEAN CORPUSCULAR HGB CONC 34 g/dL (32-36); MEAN CORPUSCULAR VOLUME 97 fL (80-99); MEAN PLATELET VOLUME 9.8 fL (9.0-12.2); MONOCYTES # (AUTO) 0.8 10^3/uL (0.0-1.0); MONOCYTES % (AUTO) 7 % (0-12); NEUTROPHILS % (AUTO) 76 % (42-75); PLATELET COUNT 268 10^3/uL (130-400); WHITE BLOOD COUNT 11.9 10^3/uL (4.3-11.0)
--- NOTE | 2020-04-01 14:50 | NUR ---
pt transported to OB room 320 via cart with ED staff @ side. pt transferred to bed, monitors applied. report received from NIA Johnson. pt report bleeding started 15 mins prior to arrival to hospital with abd pain. "my bedroom looks like a murder scene". reports last period was 1.5 months ago, has irregular cycles. pt hx of HPTN since 19yers old- not currently taking medication for- " they all made me sick". [id number]. saw for previous deliveries. no care, unaware of r/t not feeling movement. +smoker since 19 years, approx 1/2 pack/day. "I cut down". denies current hx of drug use. last reports THC use 1 year ago.
[2020-04-01 14:55] LABS: CHLORIDE 111 MMOL/L (98-107); SODIUM 137 MMOL/L (135-145)
[2020-04-01 14:56] LABS: CALCIUM 8.2 MG/DL (8.5-10.1)
--- NOTE | 2020-04-01 14:56 | NUR ---
SVE per this RN. 1cm, thick. unable to determine presentation. bright red blood noted on pt's inner thighs and down legs. blood noted on glove after exam. cervical exam verified by NIA Davis.
[2020-04-01 14:57] LABS: GLUCOSE 86 MG/DL (70-105); TOTAL PROTEIN 6.1 GM/DL (6.4-8.2)
[2020-04-01 14:58] LABS: CARBON DIOXIDE 18 MMOL/L (21-32)
[2020-04-01 14:59] LABS: BILIRUBIN,TOTAL 0.3 MG/DL (0.1-1.0)
[2020-04-01 15:00] LABS: ALKALINE PHOSPHATASE 190 U/L (40-136)
[2020-04-01 15:01] LABS: CREATININE SERUM 0.54 MG/DL (0.60-1.30); GFR ESTIMATED > 60
[2020-04-01 15:02] LABS: BUN/CREATININE RATIO 9
--- NOTE | 2020-04-01 15:02 | NUR ---
is on WS unit- verbal update given on pt's admit c/o's and ED orders. new orders received.
[2020-04-01 15:03] LABS: ALANINE AMINOTRANSFERASE 7 U/L (0-55)
[2020-04-01] MEDS ORDERED: D5 LR IV SOLUTION 1,000 ML IV ONE (15:10)
[2020-04-01] MEDS ORDERED: D5 LR IV SOLUTION 1,000 ML IV SCH (15:15)
--- NOTE | 2020-04-01 15:22 | NUR ---
ultrasound here for gestational dating.
--- NOTE | 2020-04-01 15:59 | NUR ---
urine specimen collected via strait cath by NIA Davis. specimen labeled and sent to lab. Addendum: 04/01/20 at 1842 by MARIA LUISA MADDOX RN 1200cc dark, orange urine emptied from bladder by NIA Davis
--- NOTE | 2020-04-01 16:00 | NUR ---
DURING STRAIGHT CATH, PT NOTED TO HAVE BILATERAL TEARS, WILL NOTIFY DR. HENDERSON.
--- NOTE | 2020-04-01 16:11 | NUR ---
@ bedside to evaluate perineal lacerations.
[2020-04-01 16:12] LABS: BILIRUBIN,URINE NEGATIVE (NEGATIVE); CLARITY,URINE CLEAR; COLOR,URINE YELLOW; GLUCOSE, URINE (UA) NEGATIVE (NEGATIVE); KETONES,URINE NEGATIVE (NEGATIVE); LEUKOCYTE ESTERASE ,URINE NEGATIVE (NEGATIVE); NITRITE,URINE NEGATIVE (NEGATIVE); PH,URINE 6.5 (5-9); PROTEIN,URINE NEGATIVE (NEGATIVE)
--- NOTE | 2020-04-01 16:16 | Diagnostic Imaging Report ---
INDICATION: Vaginal bleeding. TECHNIQUE: Multiple real-time grayscale images were obtained over the gravid uterus. COMPARISON: None FINDINGS: There are no prior studies available for comparison. There is a single live near-term fetus in cephalic presentation. heart motion was noted and a rate of 143 BPM was recorded. There are no obvious abnormalities identified. The analysis of the anatomy is limited however due to the size of the fetus. The amniotic fluid volume is at the upper limits of normal. The ADINA is 19.1 (normal 8 22 cm). The placenta is anterior and there is no previa. The growth parameters average 38 weeks 2 days +/- 3.5 weeks. The cervix was identified and measures 6.3 cm in length. Biometrical measurements are as follows: Biparietal 8.75 cm, age 35 weeks 3 days. Head circumference 33.79 cm, age 38 weeks 6 days. Abdominal circumference 34.71 cm, age 38 weeks 5 days. Femur length 7.77 cm, age 39 weeks 6 days. Sonographic estimate age: 38 weeks 2 days. Sonographic estimated date of delivery: 04/13/2020. Estimated Weight: 3498 gm (+/- 511 gm). LMP percentile: ???%. heart rate: 143 beats per minute. number: 1 of 1. IMPRESSION: 1. There is a single live near-term fetus in cephalic presentation of approximately 38 weeks 2 days gestation +/- 3.5 weeks. The EDC is 04/13/2020. 2. There are no obvious abnormalities identified. Dictated by: Dictated on workstation # [id number]
[2020-04-01 16:22] LABS: AMORPHOUS SEDIMENT,UR FEW AMOR URATES /LPF; BACTERIA,URINE NEGATIVE /HPF
--- NOTE | 2020-04-01 16:23 | History & Physical-OB ---
OB - Chief Complaint & HPI Date/Time Date of Admission: Date of Admission: Apr 01, 2020 at 14:41 Date seen by a Provider: Apr 01, 2020 Time Seen by a Provider: 16:15 Chief Complaint/History OB-Reason for Admission/Chief: Other reason for admission: This 29 yo female presented to ER with vaginal bleeding at home after intercourse and found to have a fundal height of 39 cm in the ER. heart tones found, although patient denies any history of knowing she is and has not had any care. Reports having previous children at this hospital with Dr. Fernandez and each time they had to break her water. Admission Nurse Assessment Rev: Yes Allergies and Home Medications Allergies Coded Allergies: MEAGANANo Known Allergies (Unverified Allergy, Mild, 11/05/08) Home Medications Acetaminophen 500 Mg Tablet, 1,000 MG PO PRN Prescribed by: FITO FERNANDEZ on 04/18/19 0900 Albuterol Sulfate 1 Puff Puff, 2 PUFF IH Q4H 1 PUFF = 90 MCG Prescribed by: GARETT VICTOR on 08/25/18 1547 Ibuprofen 600 Mg Tablet, 600 MG PO Q6HR Prescribed by: FITO FERNANDEZ on 04/18/19 0900 Metronidazole 500 Mg Tablet, 500 MG PO TID Prescribed by: FITO FERNANDEZ on 04/18/19 0900 Pnv with Ca,No.72/Iron/FA 1 Each Tablet, 1 EA PO DAILY@0700 Prescribed by: FITO FERNANDEZ on 04/18/19 0900 Patient Home Medication List Home Medication List Reviewed: Yes OB - History Hx of Present Care: No Ultrasounds: No ultrasounds Obstetrical Complications: None Medical Complications: None Obstetrical History Hx Termination: No Hx Multiple Gestation: No Hx Stillbirth: No Hx Complication: No Hx Induced Hypertens: No Hx Maternal Gestational Diabet: No Delivery History Hx Dystocia: No Hx Large For Gestational Age I: No Hx Small for Gestational Age I: No Hx Section: No Hx Vaginal Delivery Post C-Sec: No Hx Blood Disorders: No Patient Past Medical History NC Social History/Family History Alcohol Use: Denies Use Recreational Drug Use: No 2nd Hand Smoke Exposure: Yes Immunizations Hepatitis A: Yes Hepatitis B: Yes Tetanus Booster (TDap): Less than 5yrs Date of Influenza Vaccine: Dec 19, 2011 OB - Admission Exam Physical Exam Vitals: Vital Signs 04/01/20 04/01/20 14:34 14:49 Temp 36.6 Pulse 96 Resp 16 B/P (MAP) 132/96 Pulse Ox 97 O2 Delivery Room Air HEENT: NCAT Heart: Rhythm Normal Lungs: Clear Abdomen: Gravid Extremities: Normal Reflexes: Normal Cervical Dilatation: 1cm Effacement: 50% Station: -3 Membranes: Intact Heart Rate: 130's Accelerations: Accelerations Present Decelerations: No Decelerations Short Term Variability: Present Nursing Home Variability: Average (6-25) Contractions on Admission: 6-10 Minutes Apart Intensity: Mild Labs Laboratory Tests Test 04/01/20 14:41 04/01/20 15:10 04/01/20 16:04 Range/Units White Blood Count 11.9 H 4.3-11.0 10^3/uL Red Blood Count 3.47 L 3.80-5.11 10^6/uL Hemoglobin 11.5 11.5-16.0 g/dL Hematocrit 34 L 35-52 % Mean Corpuscular Volume 97 80-99 fL Mean Corpuscular Hemoglobin 33 25-34 pg Mean Corpuscular Hemoglobin Concent 34 32-36 g/dL Red Cell Distribution Width 13.7 10.0-14.5 % Platelet Count 268 130-400 10^3/uL Mean Platelet Volume 9.8 9.0-12.2 fL Immature Granulocyte % (Auto) 1 % Neutrophils (%) (Auto) 76 H 42-75 % Lymphocytes (%) (Auto) 14 12-44 % Monocytes (%) (Auto) 7 0-12 % Eosinophils (%) (Auto) 2 0-10 % Basophils (%) (Auto) 1 0-10 % Neutrophils # (Auto) 9.0 H 1.8-7.8 10^3/uL Lymphocytes # (Auto) 1.7 1.0-4.0 10^3/uL Monocytes # (Auto) 0.8 0.0-1.0 10^3/uL Eosinophils # (Auto) 0.3 0.0-0.3 10^3/uL Basophils # (Auto) 0.1 0.0-0.1 10^3/uL Immature Granulocyte # (Auto) 0.1 0.0-0.1 10^3/uL Sodium Level 137 135-145 MMOL/L Potassium Level 4.0 3.6-5.0 MMOL/L Chloride Level 111 H 98-107 MMOL/L Carbon Dioxide Level 18 L 21-32 MMOL/L Anion Gap 8 5-14 MMOL/L Blood Urea Nitrogen 5 L 7-18 MG/DL Creatinine 0.54 L 0.60-1.30 MG/DL Estimat Glomerular Filtration Rate > 60 BUN/Creatinine Ratio 9 Glucose Level 86 70-105 MG/DL Calcium Level 8.2 L 8.5-10.1 MG/DL Corrected Calcium 9.0 8.5-10.1 MG/DL Total Bilirubin 0.3 0.1-1.0 MG/DL Aspartate Amino Transf (AST/SGOT) 11 5-34 U/L Alanine Aminotransferase (ALT/SGPT) 7 0-55 U/L Alkaline Phosphatase 190 H 40-136 U/L Total Protein 6.1 L 6.4-8.2 GM/DL Albumin 3.0 L 3.2-4.5 GM/DL Human Chorionic Gonadotropin, Quant 16182 H <5 MIU/ML Amniotic Fluid Ferning Test NEGATIVE NEGATIVE OB - Assessment/Plan/Diagnosis Assessment Admission Dx 29 yo @ 38.2 based upon bedside 3rd trimester US No care Bilateral periurethral lacerations, not bleeding now Admission Status: Observation Reason for Inpatient Admission: 38 week IUP with no care Vaginal bleeding Plan Other Plan labs drawn OB US done, grossly WNL UDS pending Will plan for dc if not in labor and no indication for delivery NEEDS FOLLOW UP FOR PNC. CHAPO HENDERSON DO Apr 01, 2020 16:23
[2020-04-01 16:36] LABS: AMPHETAMINE SCREEN, URINE NEGATIVE (NEGATIVE); BARBITURATE SCREEN URINE NEGATIVE (NEGATIVE); BENZODIAZEPINES SCREEN URINE NEGATIVE (NEGATIVE); CANNABINOID SCREEN, URINE NEGATIVE (NEGATIVE); COCAINE SCREEN URINE NEGATIVE (NEGATIVE); METHADONE STAT NEGATIVE (NEGATIVE); METHAMPHETAMINE SCREEN URINE S POSITIVE (NEGATIVE); OPIATE SCREEN URINE NEGATIVE (NEGATIVE); OXYCODONE STAT NEGATIVE (NEGATIVE); PROPOXYPHENE STAT NEGATIVE (NEGATIVE); TRICYCLIC ANTIDEPRESSANTS SCRE NEGATIVE (NEGATIVE)
--- NOTE | 2020-04-01 16:50 | NUR ---
THIS RN NOTIFIED THAT PT IS CRYING AND REQUESTING SOMETHING FOR PAIN, DR. HENDERSON NOTIFIED OF REQUEST AND LATEST UDS RESULTS. NEW ORDERS RECEIVED. Addendum: 04/01/20 at 1655 by RICK HARLEY RN ALSO VOICES THAT ONCE LABS ARE DRAWN, TO RECHECK PT AND IF NOT IN LABOR, PT MAY BE DISCHARGED HOME.
[2020-04-01] MEDS ORDERED: ACETAMINOPHEN 500 MG TAB (TYLENOL) PO PRN (17:00)
--- NOTE | 2020-04-01 17:10 | NUR ---
Group B culture collected by this RN, labeled and sent to lab. swelling noted in labia majora and minora. bilat. periutheral lacerations noted, with clotting noted with to the Rt.side. pt reports having intercourse today, this RN questioned pt about swelling, reports from intercourse. pt crying r/t pain. pt's mother @ bedside- questioning RN cause of pain. reviewed with pt and mother current gestation of and contractions r/t gestation. pt wanting to be induced with this . reviewed with pt POC and urgency to set up care with provider. reviewed IOL policy of 39 weeks.
--- NOTE | 2020-04-01 17:30 | NUR ---
SVE 1cm, thick, anterior, and unable to determine presenting part. POC reviewed with pt and mother.
--- NOTE | 2020-04-01 17:41 | NUR ---
monitors and IV site dc'd.
--- NOTE | 2020-04-01 17:54 | NUR ---
dismissal instructions given, verbalizes understanding. reviewed sx's to RTC and sx's of labor. instructed pt to schedule appointment with MD of choice for care BALDEMAR. signature page signed, placed on chart.
--- NOTE | 2020-04-01 18:10 | NUR ---
pt dismissed to private vehicle via w/c with NIA Davis and mother @ side. pt stable with no sx's of distress noted.
--- NOTE | 2020-04-02 08:09 | Physician Query Clarification ---
PQ-Further Specificity Admission/Discharge Admission Date: Apr 01, 2020 at 14:41 Discharge Date: Apr 01, 2020 at 18:10 Dr. Henderson, The medical record reflects the following clinical scenario: History/Risk Factors: unknown to patient, vaginal bleeding Clinical Findings: 38 weeks , vaginal bleeding, periurethral laceration, Bedside ultrasound shows a fetus of advanced gestational age.), HCG quant 21.439 Treatment: IV fluids Question: Can you further specify the cause of the bleeding per the clinical indicators above? Please document a response in the Progress Notes or Discharge Summary. 1. tiffanie periurethral lacerations 2. vaginal bleeding d/t intercourse 3. Other, with explanation of the clinical findings. 4. Clinically undetermined, no explanation for the clinical findings. PHYSICIAN RESPONSE Can you specify per above: Other, explanation/clinical finding Explanation/Clinical Findings Patient presented with vaginal bleeding from periurethral lacerations, these were noted when catheterizing took place and had stopped bleeding at that time. Please remember a lack of response to the above will prompt a phone page by CDI/Coding staff. In responding to this query, please exercise your independent professional jonathan gment. The purpose of this communication is to more accurately reflect the complexity of your patients condition. The fact that a question is asked does not imply that any particular answer is desired or expected. Thank you for your timely response to this clarification. Requestors name: Valentina [email or web address] THIS PHYSICIAN QUERY FORM IS A PERMANENT PART OF THE MEDICAL RECORD VALENTINA HAYWARD Apr 02, 2020 08:08 CHAPO HENDERSON DO Apr 02, 2020 08:20
[2020-04-15] MEDS ORDERED: IBUP-844 PO (09:42)
[2020-04-15] MEDS ORDERED: DIBU30OI TP (09:42)
[2020-04-15] MEDS ORDERED: DCS100C PO (09:42)
[2020-04-15] MEDS ORDERED: FERR325T18 PO (09:42)
[2020-04-15] MEDS ORDERED: ACET-93 PO (09:42)
[2020-04-15] MEDS ORDERED: FLUC150T PO (09:47)
--- NOTE | 2020-04-21 14:51 | Physician Query-Final Dx ---
VICKI NDIAYE 04/21/20 1451: Final Diagnosis Give Final Diagnosis Please give Final Diagnosis CHAPO HENDERSON DO 04/22/20 0807: Final Diagnosis Give Final Diagnosis I believe this was a Dr. Win patient. VICKI NDIAYE Apr 21, 2020 14:51 CHAPO HENDERSON DO Apr 22, 2020 08:07
== END 2020-04-01 17:32 | disposition home or self-care (01) ==
LOC: EDUNIT# 14:33 → ER 14:35 → UNDOADMIN 14:41 → LDRP 14:41 → UNDODISOB 17:32 → UNDODISIN 18:10
PROVIDERS: ADMIT Obstetrics & Gynecology; ATTEND Obstetrics & Gynecology
DX: O71.82 Other specified trauma to perineum and vulva (principal); O10.913 Unspecified pre-existing hypertension complicating pregnancy, third trimester; Z3A.38 38 weeks gestation of pregnancy; O99.333 Smoking (tobacco) complicating pregnancy, third trimester; F17.210 Nicotine dependence, cigarettes, uncomplicated; O09.33 Supervision of pregnancy with insufficient antenatal care, third trimester; Z79.1 Long term (current) use of non-steroidal anti-inflammatories (NSAID)
CPT/HCPCS: 36415; 76805; 80053; 80306; 81000; 84443; 84702; 85025; 86703; 86762; 86765; 86780; 86850; 86900; 86901; 87081; 87340; 89060; 96360; 96361; G0378

== ENCOUNTER 2020-04-06 15:01 | Outpatient (CLI) | payer MEDICAID ==
[~2020-04-06] VITALS: Ht 162.6 cm; Wt 84.1 kg
--- NOTE | 2020-04-06 15:08 | NUR ---
AUREA HERNANDEZ presented to unit via W/C from ED, accompanied by ER STAFF, with c/o CONTRACTIONS. AUREA HERNANDEZ weighed, gowned, voided, and to bed. EFHM and TOCO applied, VS taken. AUREA HERNANDEZ oriented to bed controls, call light, TV, heat, and A/C controls.
[2020-04-06 15:25] VITALS: BP 130/85
[2020-04-06 15:26] LABS: BILIRUBIN,URINE NEGATIVE (NEGATIVE); CLARITY,URINE SL CLOUDY; COLOR,URINE YELLOW; GLUCOSE, URINE (UA) NEGATIVE (NEGATIVE); KETONES,URINE NEGATIVE (NEGATIVE); LEUKOCYTE ESTERASE ,URINE 2+ (NEGATIVE); NITRITE,URINE NEGATIVE (NEGATIVE); PH,URINE 6.5 (5-9); PROTEIN,URINE NEGATIVE (NEGATIVE)
[2020-04-06 15:29] VITALS: BP 130/85
[2020-04-06 15:41] LABS: BACTERIA,URINE MODERATE /HPF; SQUAMOUS EPITHELIAL CELL,UR 25-50 /HPF; WBC,URINE 25-50 /HPF
[2020-04-06 15:42] LABS: AMPHETAMINE SCREEN, URINE NEGATIVE (NEGATIVE); BENZODIAZEPINES SCREEN URINE NEGATIVE (NEGATIVE); COCAINE SCREEN URINE NEGATIVE (NEGATIVE)
[2020-04-06 15:43] LABS: BARBITURATE SCREEN URINE NEGATIVE (NEGATIVE); CANNABINOID SCREEN, URINE POSITIVE (NEGATIVE); METHADONE STAT NEGATIVE (NEGATIVE); METHAMPHETAMINE SCREEN URINE S NEGATIVE (NEGATIVE); OPIATE SCREEN URINE NEGATIVE (NEGATIVE); OXYCODONE STAT NEGATIVE (NEGATIVE); PROPOXYPHENE STAT NEGATIVE (NEGATIVE); TRICYCLIC ANTIDEPRESSANTS SCRE NEGATIVE (NEGATIVE)
--- NOTE | 2020-04-06 16:15 | NUR ---
DISCHARGE INSTRUCTIONS GIVE TO PT AND COPY PROVIDED FOR PT. PT VERBALIZES UNDERSTANDING. PT SIGNED THAT DISCHARGE INSTRUCTIONS WERE GIVEN.
--- NOTE | 2020-04-06 16:20 | NUR ---
PT DISCHARGED FROM UNIT IN STABLE CONDITION VIA WHEELCHAIR ACCOMPANIED BY THIS RN AND S/O.
--- NOTE | 2020-04-07 08:51 | Physician Query-Final Dx ---
ALICIA BONILLA 04/07/20 0851: Clinic Account Progress/Dx Physician Query: Please give diagnosis Please include # weeks gestation Date of Service Apr 06, 2020 at 15:01 FITO FERNANDEZ DO 04/09/20 0847: Clinic Account Progress/Dx DIAGNOSIS: Diagnosis 38 week gestation late presentation into no care contractions, not in labor ALICIA BONILLA Apr 07, 2020 08:51 FITO FERNANDEZ DO Apr 09, 2020 08:47
== END 2020-04-06 16:20 ==
LOC: WSo 15:01 → LDRP 15:02 → WSo 16:20
PROVIDERS: ATTEND Obstetrics & Gynecology
DX: O09.33 Supervision of pregnancy with insufficient antenatal care, third trimester (principal); O62.9 Abnormality of forces of labor, unspecified; Z3A.38 38 weeks gestation of pregnancy
CPT/HCPCS: 80306; 81000; 87077; 87088; 87186; 99213

== ENCOUNTER 2020-04-09 02:54 | Outpatient (CLI) | payer MEDICAID ==
[~2020-04-09] VITALS: Ht 160 cm; Wt 86.0 kg
--- NOTE | 2020-04-09 03:00 | NUR ---
AUREA HERNANDEZ presented to unit via ambulation from ED, accompanied by Chino Gibbs who is adopting baby, with c/o CONTRACTIONS. AUREA HERNANDEZ weighed, gowned, voided, and to bed. EFHM and TOCO applied, VS taken. AUREA HERNANDEZ oriented to bed controls, call light, TV, heat, and A/C controls.
[2020-04-09 03:11] VITALS: BP 133/84
[2020-04-09 03:29] VITALS: BP 130/90
[2020-04-09 03:32] LABS: BILIRUBIN,URINE NEGATIVE (NEGATIVE); CLARITY,URINE CLEAR; COLOR,URINE YELLOW; GLUCOSE, URINE (UA) NEGATIVE (NEGATIVE); KETONES,URINE NEGATIVE (NEGATIVE); LEUKOCYTE ESTERASE ,URINE 1+ (NEGATIVE); NITRITE,URINE NEGATIVE (NEGATIVE); PH,URINE 7.5 (5-9); PROTEIN,URINE NEGATIVE (NEGATIVE)
[2020-04-09 03:39] LABS: AMPHETAMINE SCREEN, URINE NEGATIVE (NEGATIVE); BARBITURATE SCREEN URINE NEGATIVE (NEGATIVE); BENZODIAZEPINES SCREEN URINE NEGATIVE (NEGATIVE); CANNABINOID SCREEN, URINE NEGATIVE (NEGATIVE); COCAINE SCREEN URINE NEGATIVE (NEGATIVE); METHADONE STAT NEGATIVE (NEGATIVE); METHAMPHETAMINE SCREEN URINE S NEGATIVE (NEGATIVE); OPIATE SCREEN URINE NEGATIVE (NEGATIVE); OXYCODONE STAT NEGATIVE (NEGATIVE); PROPOXYPHENE STAT NEGATIVE (NEGATIVE); TRICYCLIC ANTIDEPRESSANTS SCRE NEGATIVE (NEGATIVE)
[2020-04-09 03:40] LABS: BACTERIA,URINE NEGATIVE /HPF; WBC,URINE RARE /HPF
[2020-04-09] MEDS ORDERED: IBUP-1773 PO (04:08)
--- NOTE | 2020-04-09 04:20 | NUR ---
D/C instructions given & explained per Chino Chavarria RN, pt. verbalized understanding & signed, copy of D/C instructions to pt. Pt. left WS via W/C per Chino Chavarria RN per pt's request, pt. to home via private vehicle w/friend.
[2020-04-10] MEDS ORDERED: AMOX500T2 PO (01:12)
[2020-04-10] MEDS ORDERED: HYDR-3584 PO (02:45)
--- NOTE | 2020-04-13 16:42 | Physician Query-Final Dx ---
Final Diagnosis Give Final Diagnosis Please give Final Diagnosis VICKI NDIAYE Apr 13, 2020 16:42
== END 2020-04-09 04:20 | disposition home or self-care (01) ==
LOC: WSo 02:54 → LDRP 02:55 → WSo 04:20
PROVIDERS: ATTEND Obstetrics & Gynecology
DX: O62.0 Primary inadequate contractions (principal)
CPT/HCPCS: 80306; 81000; 99213

== ENCOUNTER 2020-04-09 12:16 | Outpatient (CLI) | payer MEDICAID ==
[~2020-04-09] VITALS: Ht 162.6 cm; Wt 84.5 kg
--- NOTE | 2020-04-09 12:21 | NUR ---
AUREA HERNANDEZ presented to unit via W/C from ED, accompanied by ER STAFF AND FRIEND, with c/o CONTRACTIONS. AUREA HERNANDEZ weighed, gowned, voided, and to bed. EFHM and TOCO applied, VS taken. AUREA HERNANDEZ oriented to bed controls, call light, TV, heat, and A/C controls.
[2020-04-09 13:05] VITALS: BP 127/87
--- NOTE | 2020-04-09 13:25 | NUR ---
DR. FERNANDEZ NOTIFIED OF PT'S ARRIVAL, C/O CTXS & NEEDING IV ABX PER RECOMMENDATION OF PROVIDER AT [facility], REVIEW OF STRIP. ORDER RECEIVED FOR DISCHARGE AND TO KEEP SCHEDULED APPOINTMENT FOR SUNDAY.
--- NOTE | 2020-04-09 13:32 | NUR ---
DISCHARGE PAPERS PROVIDED AND REVIEWED WITH PT, PT VERBALIZES UNDERSTANDING AND DENIES ANY QUESTIONS AT THIS TIME. PAPER SIGNED.
--- NOTE | 2020-04-09 13:35 | NUR ---
PT DISCHARGED FROM -[facility] TO [facility] VIA AMBULATORY IN STABLE CONDITION ACC BY FRIEND.
[2020-04-10] MEDS ORDERED: AMOX500T2 PO (01:12)
[2020-04-10] MEDS ORDERED: HYDR-3584 PO (02:45)
--- NOTE | 2020-04-13 16:42 | Physician Query-Final Dx ---
VICKI NDIAYE 04/13/20 1642: Final Diagnosis Give Final Diagnosis Please give Final Diagnosis CHAPO HENDERSON DO 04/14/20 0735: Final Diagnosis Give Final Diagnosis 38 week IUP Irregular contractions VICKI NDIAYE Apr 13, 2020 16:42 CHAPO HENDERSON DO Apr 14, 2020 07:35
[2020-04-15] MEDS ORDERED: DCS100C PO (09:42)
[2020-04-15] MEDS ORDERED: ACET-93 PO (09:42)
[2020-04-15] MEDS ORDERED: DIBU30OI TP (09:42)
[2020-04-15] MEDS ORDERED: IBUP-844 PO (09:42)
[2020-04-15] MEDS ORDERED: FERR325T18 PO (09:42)
[2020-04-15] MEDS ORDERED: FLUC150T PO (09:47)
== END 2020-04-09 13:35 | disposition home or self-care (01) ==
LOC: WSo 12:16 → LDRP 12:17 → WSo 13:35
PROVIDERS: ATTEND Obstetrics & Gynecology
DX: O60.03 Preterm labor without delivery, third trimester (principal); Z3A.38 38 weeks gestation of pregnancy
CPT/HCPCS: 99213

== ENCOUNTER 2020-04-10 01:04 | Outpatient (CLI) | payer MEDICAID ==
[~2020-04-10] VITALS: Ht 162.6 cm; Wt 86.1 kg
[2020-04-10] MEDS ORDERED: AMOX500T2 PO (01:12)
--- NOTE | 2020-04-10 01:19 | NUR ---
AUREA HERNANDEZ presented to unit via WC from ED, accompanied by friend, with c/o CONTRACTIONS. AUREA HERNANDEZ weighed, gowned, voided, and to bed. EFHM and TOCO applied, VS taken. AUREA HERNANDEZ oriented to bed controls, call light, TV, heat, and A/C controls.
[2020-04-10 01:28] LABS: BILIRUBIN,URINE NEGATIVE (NEGATIVE); CLARITY,URINE CLEAR; COLOR,URINE YELLOW; GLUCOSE, URINE (UA) TRACE (NEGATIVE); KETONES,URINE NEGATIVE (NEGATIVE); LEUKOCYTE ESTERASE ,URINE 1+ (NEGATIVE); NITRITE,URINE NEGATIVE (NEGATIVE); PROTEIN,URINE NEGATIVE (NEGATIVE)
[2020-04-10 01:29] VITALS: BP 141/81
[2020-04-10 01:30] VITALS: BP 136/81
[2020-04-10 01:31] VITALS: BP 141/81
[2020-04-10 01:34] VITALS: BP 141/81
[2020-04-10 01:38] LABS: AMPHETAMINE SCREEN, URINE NEGATIVE (NEGATIVE); BACTERIA,URINE FEW /HPF; BARBITURATE SCREEN URINE NEGATIVE (NEGATIVE); BENZODIAZEPINES SCREEN URINE NEGATIVE (NEGATIVE); CANNABINOID SCREEN, URINE NEGATIVE (NEGATIVE); COCAINE SCREEN URINE NEGATIVE (NEGATIVE); METHADONE STAT NEGATIVE (NEGATIVE); METHAMPHETAMINE SCREEN URINE S NEGATIVE (NEGATIVE); OPIATE SCREEN URINE NEGATIVE (NEGATIVE); OXYCODONE STAT NEGATIVE (NEGATIVE); PROPOXYPHENE STAT NEGATIVE (NEGATIVE); RBC,URINE 0-2 /HPF; TRICYCLIC ANTIDEPRESSANTS SCRE NEGATIVE (NEGATIVE)
--- NOTE | 2020-04-10 02:25 | NUR ---
Dr. Win notified of patient arrival, complaints, SVE, UA results, FHR, and contraction pattern. Orders received to give 50mg hydroxyzine, to call in a prescription for hydroxyzine, and to discharge home on labor precautions.
[2020-04-10] MEDS ORDERED: hydrOXYzine (ATARAX) 10 MG TAB ONE (02:35)
[2020-04-10 02:45] VITALS: BP 154/102
[2020-04-10] MEDS ORDERED: HYDR-3584 PO (02:45)
[2020-04-10] MEDS ORDERED: hydrOXYzine (VISTARIL/ATARAX) 25 MG capsule/tablet PO ONE (03:00)
--- NOTE | 2020-04-10 03:05 | NUR ---
Written discharge instructions reviewed with patient and friend with patient. Discharge instructions signed and copy given. Condition stable.
--- NOTE | 2020-04-10 03:13 | NUR ---
prescription called to [facility]
--- NOTE | 2020-04-13 16:46 | Physician Query-Final Dx ---
Final Diagnosis Give Final Diagnosis Please give Final Diagnosis VICKI NDIAYE Apr 13, 2020 16:46
[2020-04-15] MEDS ORDERED: DIBU30OI TP (09:42)
[2020-04-15] MEDS ORDERED: FERR325T18 PO (09:42)
[2020-04-15] MEDS ORDERED: IBUP-844 PO (09:42)
[2020-04-15] MEDS ORDERED: DCS100C PO (09:42)
[2020-04-15] MEDS ORDERED: ACET-93 PO (09:42)
[2020-04-15] MEDS ORDERED: FLUC150T PO (09:47)
== END 2020-04-10 03:05 | disposition home or self-care (01) ==
LOC: WSo 01:04 → LDRP 01:04 → WSo 03:05
PROVIDERS: ATTEND Obstetrics & Gynecology
DX: O62.9 Abnormality of forces of labor, unspecified (principal); Z3A.00 Weeks of gestation of pregnancy not specified
CPT/HCPCS: 80306; 81000; 87077; 87088; 99213

== ENCOUNTER 2020-08-12 17:27 | Emergency (ER) | payer MEDICAID ==
[~2020-08-12] VITALS: Ht 162 cm; Wt 74.8 kg
[~2020-08-12 17:27] MED LIST changes: +ACET-93 PO; +AMOX500T2 PO; +DCS100C PO; +DIBU30OI TP; +FERR325T18 PO; +FLUC150T PO; +HYDR-3584 PO
[2020-08-12 17:41] VITALS: BP 133/101
[2020-08-12] MEDS ORDERED: LIDOCAINE 1% INJ 20 ML 20 ML VIAL ONE (17:41)
[2020-08-12] MEDS ORDERED: LIDOCAINE 1% INJ 20 ML 20 ML VIAL INJ ONE (18:00)
[2020-08-12] MEDS ORDERED: HYDROcodone/APAP 5 MG/325 MG (LORTAB) TAB PO ONE (18:00)
[2020-08-12] MEDS ORDERED: ACHD5005 PO (18:11)
--- NOTE | 2020-08-12 18:12 | ED Integumentary General ---
General Chief Complaint: Skin/Wound Problems Stated Complaint: KNOT/ABSCESS ON BACK OF NECK Nursing Triage Note: PT PRESENTS TO ED WITH COMPLAINTS OF L SIDE OF NECK PAIN/WOUND SINCE SUNDAY. SHE HAS 2X2 RED RAISED BUMP ON L SIDE OF BASE OF HEAD. REPORTS [facility] PRESCRIBED BACTRIM 2 DAYS AGO Source: patient Exam Limitations: no limitations (ARPAN MEREDITH APRN) History of Present Illness Date Seen by Provider: August 12, 2020 Time Seen by Provider: 18:07 Initial Comments To ER with pain and swelling to the posterior left side of her neck. She is currently on Bactrim x48 hours for this. Timing/Duration: constant Severity: moderate Possible Cause: no cause identified Associated Symptoms: denies symptoms (ARPAN MEREDITH APRN) Allergies and Home Medications Allergies Coded Allergies: tramadol (Verified Allergy, Mild, 04/14/20) Home Medications Acetaminophen 500 Mg Tablet, 1,000 MG PO Q8H PRN for PAIN-MILD (1-4) Prescribed by: FITO FERNANDEZ on 04/15/20 0942 Amoxicillin 500 Mg Tablet, 500 MG PO BID, (Reported) Dibucaine 30 Gm Oint, 30 GM TP TID PRN for hemorroid discomfort Prescribed by: FITO FERNANDEZ on 04/15/20 0942 Docusate Sodium 100 Mg Capsule, 100 MG PO BID Prescribed by: FITO FERNANDEZ on 04/15/20 0942 Ferrous Sulfate 325 Mg Tablet, 325 MG PO DAILY Prescribed by: FITO FERNANDEZ on 04/15/20 0942 Fluconazole 150 Mg Tablet, 150 MG PO DAILY take one po and repeat in 72 hours. begin after antibiotics are completed Prescribed by: FITO FERNANDEZ on 04/15/20 0947 Hydrocodone/Acetaminophen 1 Each Tablet, 1 TAB PO Q4H PRN for PAIN-MODERATE (5- 7) Prescribed by: ARPAN MEREDITH on 08/12/20 1812 Hydroxyzine HCl 10 Mg Tablet, 50 MG PO HS PRN for ANXIETY Prescribed by: SEAN FARIAS on 04/10/20 0245 Ibuprofen 600 Mg Tablet, 600 MG PO Q6HR Prescribed by: FITO FERNANDEZ on 04/15/20 0942 Patient Home Medication List Home Medication List Reviewed: Yes (ARPAN MEREDITH APRN) Review of Systems Review of Systems Constitutional: see HPI EENTM: see HPI Respiratory: no symptoms reported Cardiovascular: no symptoms reported Genitourinary: no symptoms reported Musculoskeletal: no symptoms reported Skin: see HPI Psychiatric/Neurological: No Symptoms Reported (ARPAN MEREDITH APRN) Past Opauvjw-Jwbuhy-Vqfxej Hx Patient Social History Alcohol Use: Denies Use Number of Drinks Today: Alcohol Beverage of Choice: Wine Drug of Choice: marijuana Smoking Status: Current Everyday Smoker Type Used: Cigarettes 2nd Hand Smoke Exposure: No Recent Infectious Disease Expo: No Recent Hopitalizations: No (ARPAN MEREDITH APRN) Immunizations Up To Date Tetanus Booster (TDap): Less than 5yrs PED Vaccines UTD: Yes Date of Influenza Vaccine: Dec 19, 2011 (ARPAN MEREDITH APRN) Seasonal Allergies Seasonal Allergies: No (ARPAN MEREDITH APRN) Past Medical History Surgeries: Yes (EMERGENT D & C) Respiratory: No Cardiac: Yes Hypertension Neurological: No Headaches /Migraines Reproductive Disorders: Yes (ovarian cyst) Female Reproductive Disorders: Ovarian Cyst HIV/AIDS: No Genitourinary: No Gastrointestinal: No Musculoskeletal: No Endocrine: No HEENT: No Cancer: No Psychosocial: No Integumentary: No Blood Disorders: No (ARPAN MEREDITH APRN) Family Medical History Diabetes mellitus GRANDMOTHER, MATERNAL FH: hepatitis 19 MOTHER Hypertension 19 MOTHER No Pertinent Family Hx (ARPAN MEREDITH APRN) Physical Exam Vital Signs Vital Signs - First Documented 08/12/20 17:41 Temp 36.7 Pulse 129 Resp 20 B/P (MAP) 133/101 (112) Pulse Ox 100 (CIRO WILKINS MD) Vital Signs Capillary Refill : Less Than 3 Seconds (ARPAN MEREDITH APRN) General Appearance: WD/WN, no apparent distress HEENT: PERRL/EOMI, normal ENT inspection Neck: other (To your left side of the neck has a golf ball sized area of erythema, induration with slight fluctuance in the center. This was anesthetized with 3 mL of 1% lidocaine without epinephrine. An incision was made with 11 blade scalpel. Purulent material was expressed. Cavity was probed with the use blunt end of a sterile Q-tip. Cavity was then packed with plain quarter inch gauze.) Respiratory: no respiratory distress, no accessory muscle use Extremities: normal range of motion, non-tender Neurologic/Psychiatric: alert, normal mood/affect Skin: normal color, warm/dry (ARPAN MEREDITH APRN) Progress/Results/Core Measures Results/Orders Vital Signs/I&O 08/12/20 17:41 Temp 36.7 Pulse 129 Resp 20 B/P (MAP) 133/101 (112) Pulse Ox 100 (CIRO WILKINS MD) Blood Pressure Mean: 112 Progress Progress Note : Progress Note I was personally present in the emergency department during the care of this patient but did not directly participate in this patient's care. (CIRO WILKINS MD) Departure Impression Primary Impression: Abscess Disposition: HOME, SELF-CARE Condition: Stable Departure-Patient Inst. Decision time for Depature: 18:10 (ARPAN MEREDITH APRN) [place]errals: [facility] [place] Primary Care Physician ROXI CLEMONS (Family) Primary Care Physician Patient Instructions: Abscess Incision and Drainage (DC) Add. Discharge Instructions: 1. You can remove the packing tomorrow evening by simply pulling on it. Take the antibiotics as directed. Warm compresses to the area. Return to ER for any worsening. All discharge instructions reviewed with patient and/or family. Voiced understanding. Scripts Hydrocodone/Acetaminophen (Hydrocodone-Acetamin 5-325 mg) 1 Each Tablet 1 TAB PO Q4H PRN for PAIN-MODERATE (5-7), #10 TAB Prov: ARPAN MEREDITH APRN 08/12/20 ARPAN MEREDITH APRN August 12, 2020 18:12 CIRO WILKINS MD August 13, 2020 06:33
== END 2020-08-12 18:17 | disposition home or self-care (01) ==
LOC: EDUNIT# 17:27 → ER 17:29
DX: L02.11 Cutaneous abscess of neck (principal); I10 Essential (primary) hypertension; F17.210 Nicotine dependence, cigarettes, uncomplicated
CPT/HCPCS: 10060; 87070; 87077; 87186; 87205

== ENCOUNTER 2021-03-15 23:37 | Emergency (ER) | payer MEDICAID, OTHER ==
[~2021-03-15] VITALS: Ht 162 cm; Wt 79.0 kg
[~2021-03-15 23:37] MED LIST changes: -DCS100C PO; +DOCU-239 PO
[2021-03-16] MEDS ORDERED: KETOROLAC 30 MG/ML VIAL IVP ONE
[2021-03-16] MEDS ORDERED: CLINDAMYCIN 900 MG/50 ML IVPB 50 ML IV ONE
[2021-03-16 00:19] LABS: BASOPHILS # (AUTO) 0.1 10^3/uL (0.0-0.1); BASOPHILS % (AUTO) 1 % (0-10); EOSINOPHILS # (AUTO) 0.2 10^3/uL (0.0-0.3); EOSINOPHILS % (AUTO) 2 % (0-10); HEMATOCRIT 44 % (35-52); HEMOGLOBIN 14.2 g/dL (11.5-16.0); LYMPHOCYTES # (AUTO) 2.4 10^3/uL (1.0-4.0); LYMPHOCYTES % (AUTO) 16 % (12-44); MEAN CORPUSCULAR HEMOGLOBIN 32 pg (25-34); MEAN CORPUSCULAR HGB CONC 33 g/dL (32-36); MEAN CORPUSCULAR VOLUME 97 fL (80-99); MEAN PLATELET VOLUME 10.4 fL (9.0-12.2); MONOCYTES # (AUTO) 1.5 10^3/uL (0.0-1.0); MONOCYTES % (AUTO) 10 % (0-12); NEUTROPHILS # (AUTO) 10.5 10^3/uL (1.8-7.8); NEUTROPHILS % (AUTO) 71 % (42-75); PLATELET COUNT 344 10^3/uL (130-400); WHITE BLOOD COUNT 14.8 10^3/uL (4.3-11.0)
[2021-03-16 00:27] LABS: POTASSIUM 3.7 MMOL/L (3.6-5.0)
[2021-03-16 00:28] LABS: CALCIUM 9.4 MG/DL (8.5-10.1)
[2021-03-16 00:28] LABS: BILIRUBIN,URINE NEGATIVE (NEGATIVE); CLARITY,URINE CLEAR; COLOR,URINE YELLOW; GLUCOSE, URINE (UA) NEGATIVE (NEGATIVE); KETONES,URINE NEGATIVE (NEGATIVE); LEUKOCYTE ESTERASE ,URINE TRACE (NEGATIVE); NITRITE,URINE POSITIVE (NEGATIVE); PROTEIN,URINE NEGATIVE (NEGATIVE)
[2021-03-16 00:29] LABS: TOTAL PROTEIN 7.7 GM/DL (6.4-8.2)
[2021-03-16 00:31] LABS: BILIRUBIN,TOTAL 0.4 MG/DL (0.1-1.0)
[2021-03-16 00:33] LABS: CREATININE SERUM 0.75 MG/DL (0.60-1.30)
[2021-03-16 00:35] LABS: BACTERIA,URINE LARGE /HPF; WBC,URINE 0-2 /HPF
[2021-03-16] MEDS ORDERED: IOHEXOL 350 MG/ML 100 ML (OMNIPAQUE 350) VIAL IV ONE (00:45)
[2021-03-16] MEDS ORDERED: NS 100 ML (IVPB) BAG IV ONE (00:45)
[2021-03-16] MEDS ORDERED: HOLD METFORMIN - RECEIVED CONTRAST 20 ML VIAL IV SCH (00:45)
[2021-03-16 00:51] LABS: AMPHETAMINE SCREEN, URINE NEGATIVE (NEGATIVE); BARBITURATE SCREEN URINE NEGATIVE (NEGATIVE); BENZODIAZEPINES SCREEN URINE NEGATIVE (NEGATIVE); CANNABINOID SCREEN, URINE NEGATIVE (NEGATIVE); COCAINE SCREEN URINE NEGATIVE (NEGATIVE); METHADONE STAT NEGATIVE (NEGATIVE); METHAMPHETAMINE SCREEN URINE S NEGATIVE (NEGATIVE); OPIATE SCREEN URINE POSITIVE (NEGATIVE); OXYCODONE STAT NEGATIVE (NEGATIVE); PROPOXYPHENE STAT NEGATIVE (NEGATIVE); TRICYCLIC ANTIDEPRESSANTS SCRE NEGATIVE (NEGATIVE)
[2021-03-16 00:51] LABS: BAND NEUTROPHILS 3 %; EOSINOPHILS % (MANUAL) 3 %; ERYTHROCYTE SEDIMENTATION RATE 27 MM/HR (0-20); LYMPHOCYTES % (MANUAL) 29 %; MONOCYTES % (MANUAL) 7 %; NEUTROPHILS % (MANUAL) 58 %; RBC MORPH NORMAL
--- NOTE | 2021-03-16 01:37 | ED EENT ---
History of Present Illness General Chief Complaint: Facial Problems Stated Complaint: SWOLLEN MOUTH Nursing Triage Note: Patient states she woke up this am with facial swelling, she advises the swelling has become progressively worse. Source: patient History of Present Illness Date Seen by Provider: Mar 15, 2021 Time Seen by Provider: 23:50 Initial Comments PT ARRIVES VIA POV FROM HOME WITH FEMALE "FRIEND"--JESSICA BRANNON PT STATES SHE WOKE UP THIS AM WITH SWELLING TO RIGHT SIDE OF FACE STATES SWELLING HAS GOTTEN WORSE THROUGHOUT THE DAY PT STATES IT DOES NOT HURT STATES SHE HAS "BAD TEETH", AND HAS HAD THIS BEFORE DUE TO DENTAL INFECTION, BUT STATES THAT NONE OF HER TEETH HURT AND THIS COULD NOT POSSIBLY BE FROM HER TEETH DENIES FEVER DENIES COUGH DENIES URI / SINUS SYMPTOMS DENIES LOSS OF TASTE OR SMELL DENIES GI SYMPTOMS DENIES HEADACHE HAS NOT TAKEN ANYTHING FOR SYMPTOMS PT IS NOT VACCINATED AGAINST COVID PCP: [facility] [place] Allergies and Home Medications Allergies Coded Allergies: tramadol (Verified Allergy, Mild, 04/14/20) Patient Home Medication List Home Medication List Reviewed: Yes Acetaminophen (Acetaminophen) 500 Mg Tablet, 1,000 MG PO Q8H PRN for PAIN-MILD (1-4) Prescribed by: FTIO FERNANDEZ on 04/15/20 0942 Amoxicillin (Amoxicillin) 500 Mg Tablet, 500 MG PO BID, (Reported) Entered as Reported by: SEAN FARIAS on 04/10/20 0112 Clindamycin HCl (Clindamycin HCl) 300 Mg Capsule, 300 MG PO QID Prescribed by: GILBERTO SAM on 03/16/21 0138 Dibucaine (Dibucaine) 30 Gm Oint, 30 GM TP TID PRN for hemorroid discomfort Prescribed by: FITO FERNANDEZ on 04/15/20 09 Docusate Sodium (Dok) 100 Mg Capsule, 100 MG PO BID Prescribed by: FITO FERNANDEZ on 04/15/20 09 Ferrous Sulfate (Ferrous Sulfate) 325 Mg Tablet, 325 MG PO DAILY Prescribed by: FITO FERNANDEZ on 04/15/20 09 Fluconazole (Diflucan) 150 Mg Tablet, 150 MG PO DAILY Prescribed by: FITO FERNANDEZ on 04/15/20 0947 Hydrocodone/Acetaminophen (Hydrocodone-Acetamin 5-325 mg) 1 Each Tablet, 1 TAB PO Q4H PRN for PAIN-MODERATE (5-7) Prescribed by: ARPAN MEREDITH on 08/12/20 1812 Hydroxyzine HCl (Hydroxyzine HCl) 10 Mg Tablet, 50 MG PO HS PRN for ANXIETY Prescribed by: SEAN FARIAS on 04/10/20 0245 Ibuprofen (Ibu) 600 Mg Tablet, 600 MG PO Q6HR Prescribed by: FITO FERNANDEZ on 04/15/20 0942 Review of Systems Review of Systems Constitutional: no symptoms reported Eyes: No Symptoms Reported Ears: No Symptoms Reported Nose: no symptoms reported Mouth: see HPI Throat: no symptoms reported Respiratory: no symptoms reported Cardiovascular: no symptoms reported Gastrointestinal: no symptoms reported Musculoskeletal: no symptoms reported Skin: no symptoms reported Neurological: No Symptoms Reported Hematologic/Lymphatic: No Symptoms Reported Immunological/Allergic: no symptoms reported Past Yezjnwt-Lwxcew-Eocnes Hx Patient Social History Tobacco Use?: Yes Tobacco type used: Cigarettes Smoking Status: Current Everyday Smoker Substance use?: Yes Substance type: Amphetamines, Methamphetamine, Opiates/Opioids, Marijuana Alcohol Use?: No Immunizations Up To Date Tetanus Booster (TDap): Less than 5yrs PED Vaccines UTD: Yes Seasonal Allergies Seasonal Allergies: No Past Medical History Surgeries: Yes (EMERGENT D & C) Respiratory: No Cardiac: Yes Hypertension Neurological: No Headaches /Migraines Reproductive Disorders: Yes (ovarian cyst) Female Reproductive Disorders: Ovarian Cyst HIV/AIDS: No Genitourinary: No Gastrointestinal: No Musculoskeletal: No Endocrine: No HEENT: Yes (EXTENSIVE DENTAL DECAY/DENTAL INFECTIONS) Cancer: No Psychosocial: No Integumentary: No Blood Disorders: No Family Medical History Diabetes mellitus GRANDMOTHER, MATERNAL FH: hepatitis 19 MOTHER Hypertension 19 MOTHER No Pertinent Family Hx PT IS G5, WITH LAST DELIVERY 04/13/20 AND THAT CHILD WAS ADOPTED OUT AT . Physical Exam Vital Signs Vital Signs - First Documented 03/15/21 23:44 Pulse 113 Resp 18 B/P (MAP) 148/110 (123) Pulse Ox 100 O2 Delivery Room Air Height, Weight, BMI Height: 5'4.00" Weight: 150lbs. 0oz. [id number]; 30.00 BMI Method:Stated General Appearance: WD/WN, no apparent distress, other (DOES NOT APPEAR ILL OR TO BE IN ANY DISCOMFORT OR DISTRESS) Eyes: bilateral eye normal inspection, bilateral eye PERRL, bilateral eye EOMI Ears: bilateral ear TM normal Nose: normal inspection Mouth/Throat: No mandibular swelling; maxillary swelling, other (EXTENSIVE DENTAL DECAY WITH ALL TEETH DECAYED DOWN TO GUMS; MODERATE GUM SWELLING AND INFLAMMATION OVER RIGHT UPPER PREMOLAR AREA. RIGHT SIDE OF FACE /MAXILLA WITH MODERATE SWELLING. NO ERYTHEMA TO AREA. NO FLUCTUANCE. 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, no motor/sensory deficits, alert, oriented x 3 Skin: normal color, warm/dry Progress/Results/Core Measures Results/Orders Lab Results Laboratory Tests Test 03/16/21 00:03 03/16/21 00:21 03/16/21 00:22 Range/Units White Blood Count 14.8 H 4.3-11.0 10^3/uL Red Blood Count 4.48 3.80-5.11 10^6/uL Hemoglobin 14.2 11.5-16.0 g/dL Hematocrit 44 35-52 % Mean Corpuscular Volume 97 80-99 fL Mean Corpuscular Hemoglobin 32 25-34 pg Mean Corpuscular Hemoglobin Concent 33 32-36 g/dL Red Cell Distribution Width 13.2 10.0-14.5 % Platelet Count 344 130-400 10^3/uL Mean Platelet Volume 10.4 9.0-12.2 fL Immature Granulocyte % (Auto) 0 % Neutrophils (%) (Auto) 71 42-75 % Lymphocytes (%) (Auto) 16 12-44 % Monocytes (%) (Auto) 10 0-12 % Eosinophils (%) (Auto) 2 0-10 % Basophils (%) (Auto) 1 0-10 % Neutrophils # (Auto) 10.5 H 1.8-7.8 10^3/uL Lymphocytes # (Auto) 2.4 1.0-4.0 10^3/uL Monocytes # (Auto) 1.5 H 0.0-1.0 10^3/uL Eosinophils # (Auto) 0.2 0.0-0.3 10^3/uL Basophils # (Auto) 0.1 0.0-0.1 10^3/uL Immature Granulocyte # (Auto) 0.1 0.0-0.1 10^3/uL Neutrophils % (Manual) 58 % Lymphocytes % (Manual) 29 % Monocytes % (Manual) 7 % Eosinophils % (Manual) 3 % Band Neutrophils 3 % Blood Morphology Comment NORMAL Erythrocyte Sedimentation Rate 27 H 0-20 MM/HR Sodium Level 139 135-145 MMOL/L Potassium Level 3.7 3.6-5.0 MMOL/L Chloride Level 106 98-107 MMOL/L Carbon Dioxide Level 23 21-32 MMOL/L Anion Gap 10 5-14 MMOL/L Blood Urea Nitrogen 9 7-18 MG/DL Creatinine 0.75 0.60-1.30 MG/DL Estimat Glomerular Filtration Rate 91 BUN/Creatinine Ratio 12 Glucose Level 112 H 70-105 MG/DL Calcium Level 9.4 8.5-10.1 MG/DL Corrected Calcium 9.4 8.5-10.1 MG/DL Total Bilirubin 0.4 0.1-1.0 MG/DL Aspartate Amino Transf (AST/SGOT) 12 5-34 U/L Alanine Aminotransferase (ALT/SGPT) 11 0-55 U/L Alkaline Phosphatase 56 40-136 U/L C-Reactive Protein High Sensitivity 0.52 H 0.00-0.50 MG/DL Total Protein 7.7 6.4-8.2 GM/DL Albumin 4.0 3.2-4.5 GM/DL Procalcitonin 0.02 <0.10 NG/ML Serum Test, Qualitative NEGATIVE NEGATIVE Urine Color YELLOW Urine Clarity CLEAR Urine pH 6.0 5-9 Urine Specific [place] 1.015 L 1.016-1.022 Urine Protein NEGATIVE NEGATIVE Urine Glucose (UA) NEGATIVE NEGATIVE Urine Ketones NEGATIVE NEGATIVE Urine Nitrite POSITIVE H NEGATIVE Urine Bilirubin NEGATIVE NEGATIVE Urine Urobilinogen 0.2 < = 1.0 MG/DL Urine Leukocyte Esterase TRACE H NEGATIVE Urine RBC (Auto) TRACE-I H NEGATIVE Urine RBC NONE /HPF Urine WBC 0-2 /HPF Urine Squamous Epithelial Cells 5-10 /HPF Urine Crystals NONE /LPF Urine Bacteria LARGE H /HPF Urine Casts NONE /LPF Urine Mucus NEGATIVE /LPF Urine Culture Indicated YES Urine Opiates Screen POSITIVE H NEGATIVE Urine Oxycodone Screen NEGATIVE NEGATIVE Urine Methadone Screen NEGATIVE NEGATIVE Urine Propoxyphene Screen NEGATIVE NEGATIVE Urine Barbiturates Screen NEGATIVE NEGATIVE Ur Tricyclic Antidepressants Screen NEGATIVE NEGATIVE Urine Phencyclidine Screen NEGATIVE NEGATIVE Urine Amphetamines Screen NEGATIVE NEGATIVE Urine Methamphetamines Screen NEGATIVE NEGATIVE Urine Benzodiazepines Screen NEGATIVE NEGATIVE Urine Cocaine Screen NEGATIVE NEGATIVE Urine Cannabinoids Screen NEGATIVE NEGATIVE Influenza Type A (RT-PCR) Not Detected Not Detecte Influenza Type B (RT-PCR) Not Detected Not Detecte SARS-CoV-2 RNA (RT-PCR) Detected H Not Detecte My Orders Orders - GILBERTO SAM DO Ed Iv/Invasive Line Start (03/15/21 23:57) Cbc With Automated Diff (03/15/21 23:57) Comprehensive Metabolic Panel (03/15/21 23:57) Hs C Reactive Protein (03/15/21 23:57) Drug Screen Stat (Urine) (03/15/21 23:57) Hcg,Qualitative Serum (03/15/21 23:57) Procalcitonin (Pct) (03/15/21 23:57) Ua Culture If Indicated (03/15/21 23:57) Erythrocyte Sedimentation Rate (03/15/21 23:57) Urine Bedside (03/15/21 23:57) Clindamycin 900 Mg/50 Ml Ivpb (Cleocin P (03/16/21 00:00) Ketorolac Injection (Toradol Injection) (03/16/21 00:00) Ct Maxillofacial W (03/16/21 00:00) Covid 19 Inhouse Test (03/16/21 00:00) Influenza A And B By Pcr (03/16/21 00:00) Isolation Central Supply Req (03/16/21 00:00) Manual Differential (03/16/21 00:03) Urine Culture (03/16/21 00:21) Iohexol Injection (Omnipaque 350 Mg/Ml 1 (03/16/21 00:45) Received Contrast (Hold Metformin- Contr (03/16/21 00:45) Ns (Ivpb) (Sodium Chloride 0.9% Ivpb Bag (03/16/21 00:45) Medications Given in ED Current Medications Medications Dose Ordered Sig/Jessica Route Start Time Stop Time Status Last Admin Dose Admin Clindamycin Phosphate/Dextrose 50 ml @ 100 mls/hr ONCE ONCE IV 03/16/21 00:00 03/16/21 00:29 DC 03/16/21 00:07 100 MLS/HR Iohexol 75 ml ONCE ONCE IV 03/16/21 00:45 03/16/21 00:51 DC 03/16/21 00:44 75 ML Ketorolac Tromethamine 30 mg ONCE ONCE IVP 03/16/21 00:00 03/16/21 00:01 DC 03/16/21 00:07 30 MG Sodium Chloride 100 ml ONCE ONCE IV 03/16/21 00:45 03/16/21 00:51 DC 03/16/21 00:44 80 ML Vital Signs/I&O 03/15/21 23:44 Pulse 113 Resp 18 B/P (MAP) 148/110 (123) Pulse Ox 100 O2 Delivery Room Air Blood Pressure Mean: 123 Progress Progress Note : Progress Note GIVEN IV CLINDAMYCIN AND TORADOL COVID-19 TESTING DONE DUE TO PT BEING UNVACCINATED, AND NEITHER IS HER FEMALE FRIEND-WHO IS VERY HIGH RISK IF SHE CONTRACTS COVID-19. PT DENIES ANY SYMPTOMS OF COVID-19 PT EATING A VERY LARGE BAG OF CHIPS AND DRINKING A LARGE BOTTLE OF POP DURING ER STAY--WITHOUT DIFFICULTY 0200--PT NOW SUDDENLY VERY HOSTILE AND DEMANDS TO LEAVE AND WANTS TO SIGN OUT AGAINST MEDICAL ADVICE. PT ADVISED THAT TESTS WERE STILL PENDING, INCLUDING CT SCAN REPORT. ALSO ADVISED HER THAT SHE NEEDS TO QUARANTINE FOR 2 WEEKS. PT UNWILLING TO LISTEN TO INFORMATION ABOUT BAM/MAB, SHE IS NOW SUDDENLY ANXIOUS TO LEAVE. Departure Impression Primary Impression: COVID-19 virus infection Additional Impressions: Dental abscess Left against medical advice Disposition: 07 AGAINST MEDICAL ADVICE Condition: Against Medical Advice Departure-Patient Inst. Referrals: [facility] (PCP) Primary Care Physician ROXI CLEMONS (Family) Primary Care Physician Add. Discharge Instructions: All discharge instructions reviewed with patient and/or family. Voiced understanding. GILBERTO SAM DO Mar 16, 2021 01:37
[2021-03-16] MEDS ORDERED: CLIN-144 PO (01:38)
[2021-03-16 02:14] VITALS: BP 132/78
--- NOTE | 2021-03-16 03:11 | Diagnostic Imaging Report ---
PROCEDURE: CT maxillofacial with contrast. TECHNIQUE: After intravenous administration of contrast, axial images were obtained through the face and reformatted into coronal and sagittal planes. Auto Exposure Controls were utilized during the CT exam to meet ALARA standards for radiation dose reduction. INDICATION: Right facial pain and swelling There is membrane thickening both maxillary sinuses right greater than left. The submandibular and parotid glands are unremarkable. The parapharyngeal fat planes are well-preserved. There is no prevertebral soft tissue swelling or pharyngeal mucosal thickening. The neurovascular bundles are unremarkable. There is no pathologic lymphadenopathy. There is subcutaneous edema in the right side of face extending from the nasolabial fold down to the angle of the mandible. There is no discrete abscess formation. There is decay involving several of the teeth. IMPRESSION: Severe dental disease. Maxillary sinusitis. Right facial cellulitis without evidence of discrete abscess. Dictated by: Dictated on workstation # [id number]
== END 2021-03-16 02:16 | disposition left against medical advice (07) ==
LOC: EDUNIT# 23:37 → ER 23:39
DX: U07.1 COVID-19 (principal); K04.7 Periapical abscess without sinus; K02.9 Dental caries, unspecified; I10 Essential (primary) hypertension; G43.909 Migraine, unspecified, not intractable, without status migrainosus; F17.210 Nicotine dependence, cigarettes, uncomplicated; Z88.5 Allergy status to narcotic agent; Z32.02 Encounter for pregnancy test, result negative
CPT/HCPCS: 36415; 70487; 80053; 80306; 81000; 84145; 84703; 85007; 85027; 85652; 86141; 87077; 87088; 87186; 87636